=== PATIENT | female | born 1945 | race Asian ===

== ENCOUNTER 2017-02-28 07:43 | Day surgery (SDC) | payer OTHER ==
[2017-01-20 08:37] VITALS: BMI 21.0
[2017-02-15 13:36] VITALS: BMI 21.0
[~2017-02-28] VITALS: Ht 162.6 cm; Wt 56.4 kg
[~2017-02-28 07:43] MED LIST: ATROPINE SULFATE 0.1 MG/ML 5ML SYR IV PRN; CLINDAMYCIN 600 MG/54 ML D5W IV SCH; CLR10 PO; EpHEDrine SULFATE INJ 50 MG/ML AMP IV PRN; FENTANYL CITRATE INJ 50 MCG/1 ML 2 ML VIAL IV PRN; HYDROmorphone INJ 1 MG/ML SYR IV PRN; LABETALOL HCL IV 5 MG/ML 20ML IV PRN; LACTATED RINGER'S 1000ML 1,000 ML IV SCH; MULT-506 PO; ONDANSETRON INJ 2 MG/ML 2 ML VIAL IV PRN; PHENYLEPHRINE 100MCG/ML 5ML SYR IV PRN
[2017-02-28 08:32] VITALS: BP 144/83; PULSE 80; TEMP 36.8; O2SAT 98; Ht 162.6 cm; Wt 56.4 kg
[2017-02-28] MEDS ORDERED: FENTANYL CITRATE INJ 50 MCG/1 ML 2 ML VIAL ONE (08:47)
--- NOTE | 2017-02-28 09:32 | History & Physical Bridge Note ---
H&P Re-Evaluation Bridge Note: I have examined the patient, reviewed the History & Physical and in the interval since the performance of the History & Physical I have noted the following changes of clinical significance: No changes noted
[2017-02-28] MEDS ORDERED: BACITRACIN OINT 15 GM TUBE ONE (09:46)
[2017-02-28] MEDS ORDERED: BUPIVACAINE 0.5 % 5 MG/1 ML MPF 30ML VIAL ONE (09:46)
[2017-02-28] MEDS ORDERED: LIDOCAINE HCL 1% 20 ML VIAL ONE (09:46)
[2017-02-28] MEDS ORDERED: LABETALOL HCL IV 5 MG/ML 20ML IV ONE (10:36)
[2017-02-28] MEDS ORDERED: GLYCOPYRROLATE INJ 0.2 MG/ML VIAL ONE (10:36)
[2017-02-28] MEDS ORDERED: DEXAMETHASONE SOD INJ 4 MG/ML VIAL ONE (10:36)
[2017-02-28] MEDS ORDERED: PROPOFOL IV EMULSION 10 MG/ML 20 ML VIAL IV ONE (10:36)
[2017-02-28] MEDS ORDERED: ROCURONIUM BROMIDE 10 MG/ML 5 ML VIAL IV ONE (10:36)
[2017-02-28] MEDS ORDERED: ONDANSETRON INJ 2 MG/ML 2 ML VIAL ONE (10:36)
[2017-02-28] MEDS ORDERED: LIDOCAINE HCL 2% 2 ML VIAL (20MG/ML) ONE (10:36)
[2017-02-28] MEDS ORDERED: NEOSTIGMINE METHYLSULFATE 5 MG/5 ML SYR ONE (10:36)
--- NOTE | 2017-02-28 11:57 | [facility] Post Operative Brief Note ---
Immediate Operative Summary Operative Date Feb 28, 2017. Pre-Operative Diagnosis Chronic Cholecystitis and Cholelithiasis Post-Operative Diagnosis same Procedure(s) Performed Laparoscopic Cholecystectomy Surgeon Dr. Emiliano Fink Vault Mechanic Surgeon(s) CAITLIN Mclaughlin Estimated Blood Loss 30 ml Findings chronic cholecystitis, significant gallbladder wall thickening, edema, inflammation, Fluids (cc crystalloids) 1000ml Specimens Permanent Specimen A: Gallbladder and Contents Drains none Anesthesia general Complication(s) None Disposition Recovery Room / PACU
[2017-02-28] MEDS ORDERED: OXYC-57 PO (12:04)
--- NOTE | 2017-02-28 12:08 | Discharge Instructions ---
Discharge Instructions Date of Service Feb 28, 2017. Admission Reason for Admission: Chronic Calculous Cholecystitis Discharge Discharge Diagnosis / Problem: same Discharge Goals Goal(s): Decrease discomfort, Improve function Activity Recommendations Activity Limitations: as noted below No heavy lifting over 20 pounds for 2 weeks No strenuous activity until cleared by surgeon No submerging incisions underwater for 2 weeks (no bathing, swimming, or hot tubs) No driving while taking narcotic pain medication or until you are pain free . Instructions / Follow-Up Instructions / Follow-Up You may shower in 3 days, sponge bath and wash hair in meantime Try to keep dressings clean and dry and then remove after 3 days. Leave steri strips on incisions for 7 days and then remove, they may fall off on their own that is okay walking and light activity is encouraged You may take extra strength Ibuprofen in between Percocet as needed for pain however do not take Tylenol in between Percocet as it already has Tylenol in it Follow-up with Dr. Fink in 1-2 weeks as scheduled, please call office at if you do not already have an appointment Current Hospital Diet Patient's current hospital diet: Discharge Diet Recommended Diet: Regular Diet, Low Fat Diet Procedures Procedures Performed: Laparoscopic Cholecystectomy Pending Studies Studies pending at discharge: yes List of pending studies: Pathology of gallbladder- will be reviewed at follow-up visit Medical Emergencies . Who to Call and When: Medical Emergencies: If at any time you feel your situation is an emergency, please call 911 immediately. . Non-Emergent Contact Non-Emergency issues call your: Primary Care Provider, Surgeon Call Non-Emergent contact if: you have a fever, temperature is above 101, your pain is not controlled, your pain is worsening, your pain is unusual for you, wound has increased drainage, wound has increased redness, wound has increased pain . "Provider Documentation" section prepared by Garima Timmons. . VTE Core Measure Inpt VTE Proph given/why not?: SCD's [place] Drug Monitoring Program Search Results: patient reviewed within database, no issues identified
[2017-02-28] MEDS ORDERED: MoRPHine SULFATE 4 MG/ML 1 ML CARP\\VIAL IV PRN (12:15)
[2017-02-28] MEDS ORDERED: ACETAMINOPHEN 325 MG TAB PO PRN (12:15)
[2017-02-28] MEDS ORDERED: OXYCODONE/ACETAMINOPHEN 5-325 TAB PO PRN ×2 (12:15)
[2017-02-28] MEDS ORDERED: MoRPHine SULFATE 2 MG/ML CARP IV PRN ×2 (12:15)
[2017-02-28] MEDS ORDERED: ONDANSETRON INJ 2 MG/ML 2 ML VIAL IV PRN (12:15)
--- NOTE | 2017-02-28 12:41 | Anesthesiology Progress Note ---
Anesthesia Post Op Note Date & Time Feb 28, 2017 at 12:41 Vital Signs Pain Intensity: 0 Vital Signs Past 12 Hours Date Time Temp Pulse Resp B/P (MAP) Pulse Ox O2 Delivery O2 Flow Rate FiO2 02/28/17 12:35 74 17 157/87 97 Room Air 02/28/17 12:25 68 16 164/91 100 Oxymask 10 02/28/17 12:15 66 15 162/88 100 Oxymask 02/28/17 12:07 37.2 69 18 164/85 100 Oxymask 02/28/17 08:32 36.8 80 16 144/83 (103) 98 Room Air Notes Mental Status: alert / awake / arousable, participated in evaluation Pt Amnestic to Procedure: Yes Nausea / Vomiting: adequately controlled Pain: adequately controlled Airway Patency, RR, SpO2: stable & adequate BP & HR: stable & adequate Hydration State: stable & adequate Anesthetic Complications: no major complications apparent Doing well, no complaints. Daughter at bedside. VSS
[2017-02-28 12:52] VITALS: BP 159/85; PULSE 80; TEMP 36.4; O2SAT 97
--- NOTE | 2017-02-28 13:24 | OPERATIVE REPORT ---
DATE OF OPERATION: 02/28/2017 PREOPERATIVE DIAGNOSES: Chronic cholecystitis and cholelithiasis. POSTOPERATIVE DIAGNOSES: Same. OPERATION: Laparoscopic cholecystectomy. SURGEON: Emiliano Fink MD [employer]ENIOR [employer] MARKET COORDINATOR: Garima Timmons PA-C ANESTHESIA: General. ESTIMATED BLOOD LOSS: About 30 mL. FINDINGS: Chronic cholecystitis and cholelithiasis. COMPLICATIONS: None. INDICATIONS FOR THE PROCEDURE: This is a 71-year-old female who presented with symptomatic cholelithiasis and patient will be required to do laparoscopic cholecystectomy, possible open, possible cholangiogram. 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 I indicated the risks may include but not limited such as bleeding, infection, injury to common bile duct, injury to bowel, may need ERCP, myocardial infarction, stroke, DVT, even . They understand and they signed informed consent and I answered all questions. DETAILS OF PROCEDURE: We brought the patient to the OR and put the patient in the supine position. The patient received SCD on bilateral legs to prevent DVT. Also, the patient received 2 grams Ancef IV for prophylactic antibiotic. The patient received general anesthesia without difficulty. The abdomen was prepped and draped in routine sterile fashion. After time out, I injected the local anesthesia by using 1% lidocaine mixed with 0.5% Marcaine making a small incision just above umbilical, opened fascia and opened peritoneum under direct vision. I put a Puneet trocar in, connected to CO2 to create pneumoperitoneum. Flow rate is 6 liters per minute, pressure not more than 14 mmHg. Once we got a nice pneumoperitoneum, we put a camera in to look around the abdomen showing no more findings on the stomach, small bowel, large bowel, liver; however, the gallbladder showed significant inflammation, gallbladder wall thickening, edema, showing chronic cholecystitis and then we put another 3 trocar 5 mm in the right upper quadrant. Once all trocars in, we put grasper in to hold the base of the gallbladder, put direction to the diaphragm and put another grasper in to hold the pouch of the gallbladder, put gallbladder to lateral to expose the triangle of Calot. The cystic duct was identified and mobilized. Then I put two 5 mm metal clips on the proximal cystic duct, one on the distal cystic duct. I then used scissor transection the cystic duct. Then the cystic artery was identified and mobilized. I put two 5 mm metal clips on the proximal cystic artery around the distal cystic duct. I used scissor transecting cystic artery and then we checked, no active bleeding, no bile leak. Then I used Bovie to take down the gallbladder from the liver bed. Rechecked no active bleeding. Then we removed the gallbladder through the catch bag. Then we reinserted Puneet trocar in and connected to CO2 to create pneumoperitoneum again, looked around the abdomen also showing no active bleeding, no bile leak from the liver bed and then we removed all trocars under direct vision. No active bleeding from trocar site. The pneumoperitoneum was released and we closed the umbilical incision, fascial layer by using #1 Vicryl [id number] x2, closed subcutaneous layer by using 2-0 Vicryl interrupted and closed skin by using 4-0 Vicryl continuous running, another 3.5 mm trocar site closed skin only by using 4-0 Vicryl. Then we put the dressing on. The patient tolerated the procedure well. All the instrument, needle and sponge count correct x2 at the end of case. The specimen was sent to pathology. The patient transferred to recovery room in stable condition. After the procedure, I did talk to the patient's daughter about the OR finding and procedure we did and she understands. Also, I gave her all the postop care instruction, she understands. I attest to the content of the Intraoperative Record and any orders documented therein. Any exceptions are noted below. ANTHONY
[2017-02-28 13:25] VITALS: BP 156/77; PULSE 90; TEMP 37; O2SAT 98
[2017-02-28] MEDS ORDERED: CHLORASEPTIC 1.4% SOLN 180 ML BTL MT PRN (13:30)
[2017-02-28] MEDS ORDERED: NURSING VERBAL MED ORDER ONE (13:30)
[2017-02-28 13:50] VITALS: BP 154/82; PULSE 88; TEMP 37; O2SAT 99
[2017-03-01] MEDS ORDERED: CLINDAMYCIN 600 MG/54 ML D5W IV ONE (06:00)
== END 2017-02-28 14:22 | disposition home or self-care (01) ==
LOC: C.ACU 07:43
PROVIDERS: ATTEND Surgery
DX: K80.10 Calculus of gallbladder with chronic cholecystitis without obstruction (principal); Z82.49 Family history of ischemic heart disease and other diseases of the circulatory system; Z88.0 Allergy status to penicillin

== ENCOUNTER 2019-10-25 13:02 | Observation (INO) ==
--- NOTE | 2019-10-25 13:26 | Emergency Department Note ---
History of Present Illness General Chief complaint: Stroke/CVA Symptoms Stated complaint: REFERRED BY DR CHURCH STROKE Time Seen by Provider: 10/25/19 13:13 History of Present Illness Maximum Pain Intensity: 4 This is a 73-year-old female that presents to the emergency department via pr ivate vehicle accompanied by daughter with complaints of "referred by for possible stroke". The patient does not speak German but the daughter is at bedside who interprets for her. They were offered an official japanese interpreter service but respectfully declined, and rather prefer that the daughter interprets. The daughter states that the patient awoke today around 6 AM and noted right arm and right leg weakness, numbness and pain. Pain lasted for a period of time but since its onset the weakness has significantly improved. No history of CVA/TIA. Her only past medical history is significant for that of cholecystectomy. No other known pertinent past medical history and she only takes multivitamins. Patient denies any recent fevers, chills, chest pain or shortness of breath. No headache. She did undergo COVID testing 3 weeks ago which was negative. This has never happened before. No reported trauma or injury. Overall discomfort earlier today was a 2-3/10 in the right arm and right leg which has improved. No reported anticoagulant use. Home Medications Home Medications Medication Instructions Recorded Confirmed Type loratadine [Claritin] 10 mg PO DAILY PRN 01/21/19 10/25/19 History multivitamin 1 tab PO QAM 01/21/19 10/25/19 History acetaminophen [Tylenol] 325 mg PO QID PRN 10/25/19 10/25/19 History Allergies Allergy/AdvReac Type Severity Reaction Status Date / Time alendronate sodium Allergy Unknown PER PT Verified 10/25/19 14:58 RECORD amoxicillin Allergy Unknown PER PT Verified 10/25/19 14:58 RECORD clarithromycin Allergy Unknown PER PT Verified 10/25/19 14:58 RECORD nabumetone Allergy Unknown PER PT Verified 10/25/19 14:58 RECORD Past Med/Surg History Medical History History of appendicitis Surgical History History of appendectomy Hx of cholecystectomy Social History (Reviewed 10/25/19 @ 13:24 by INGRID Ac Smoking Status: Never smoker Hx Alcohol Use: No Hx Substance Use: No Preferred Language: Cantonese Occitan Communication Ability: Effective Industrial Accountant Required: Yes Current Living Situation: Alone Feels Safe at Home: Yes Safety Concerns: Feels Safe At This Time Review of Systems A total of 10 systems reviewed and were otherwise negative Physical Exam Vital Signs Vital Signs - 24 hr 10/25/19 13:03 10/25/19 13:35 10/25/19 13:37 Temperature 37.1 C Temperature Source Oral Pulse Rate 91 H 91 H 89 Pulse Rate from SpO2 Sensor 88 87 Pulse Rhythm Regular Pulse Strength Normal Respiratory Rate 17 24 15 Respiratory Effort / Characteristics Non-Labored Spontaneous Respiratory Depth Normal Respiratory Pattern Regular Blood Pressure 130/74 117/66 Blood Pressure Mean 92 74 Pulse Oximetry 98 98 98 Oxygen Delivery Method Room Air Room Air Room Air Sepsis Recent Fever Within 48 Hours No Sepsis New/Unexplained Change in Mental Status No Sepsis Action Taken by Nursing No Action Required 10/25/19 13:45 10/25/19 13:58 10/25/19 14:00 Temperature Temperature Source Pulse Rate 92 H 89 Pulse Rate from SpO2 Sensor 90 Pulse Rhythm Pulse Strength Respiratory Rate 11 L 20 Respiratory Effort / Characteristics Respiratory Depth Respiratory Pattern Blood Pressure 119/58 L 140/70 Blood Pressure Mean 74 88 Pulse Oximetry 99 Oxygen Delivery Method Room Air Sepsis Recent Fever Within 48 Hours Sepsis New/Unexplained Change in Mental Status Sepsis Action Taken by Nursing 10/25/19 14:01 10/25/19 14:15 10/25/19 14:16 Temperature Temperature Source Pulse Rate 90 80 86 Pulse Rate from SpO2 Sensor 90 81 82 Pulse Rhythm Pulse Strength Respiratory Rate 16 17 15 Respiratory Effort / Characteristics Respiratory Depth Respiratory Pattern Blood Pressure 128/65 Blood Pressure Mean 81 Pulse Oximetry 99 100 99 Oxygen Delivery Method Room Air Room Air Room Air Sepsis Recent Fever Within 48 Hours Sepsis New/Unexplained Change in Mental Status Sepsis Action Taken by Nursing 10/25/19 14:30 10/25/19 14:31 10/25/19 14:45 Temperature Temperature Source Pulse Rate 82 84 79 Pulse Rate from SpO2 Sensor 84 85 Pulse Rhythm Pulse Strength Respiratory Rate 20 17 20 Respiratory Effort / Characteristics Respiratory Depth Respiratory Pattern Blood Pressure 127/69 140/75 Blood Pressure Mean 80 114 Pulse Oximetry 99 99 98 Oxygen Delivery Method Room Air Room Air Room Air Sepsis Recent Fever Within 48 Hours Sepsis New/Unexplained Change in Mental Status Sepsis Action Taken by Nursing 10/25/19 14:46 10/25/19 15:00 10/25/19 15:01 Temperature Temperature Source Pulse Rate 79 79 81 Pulse Rate from SpO2 Sensor Pulse Rhythm Pulse Strength Respiratory Rate 18 16 28 H Respiratory Effort / Characteristics Respiratory Depth Respiratory Pattern Blood Pressure 132/61 Blood Pressure Mean 83 Pulse Oximetry 96 Oxygen Delivery Method Room Air Sepsis Recent Fever Within 48 Hours Sepsis New/Unexplained Change in Mental Status Sepsis Action Taken by Nursing 10/25/19 15:15 10/25/19 15:16 10/25/19 15:30 Temperature Temperature Source Pulse Rate 83 85 77 Pulse Rate from SpO2 Sensor Pulse Rhythm Pulse Strength Respiratory Rate 18 23 15 Respiratory Effort / Characteristics Respiratory Depth Respiratory Pattern Blood Pressure 133/77 133/70 Blood Pressure Mean 93 86 Pulse Oximetry 97 96 Oxygen Delivery Method Room Air Room Air Sepsis Recent Fever Within 48 Hours Sepsis New/Unexplained Change in Mental Status Sepsis Action Taken by Nursing 10/25/19 15:31 Temperature Temperature Source Pulse Rate 76 Pulse Rate from SpO2 Sensor Pulse Rhythm Pulse Strength Respiratory Rate 20 Respiratory Effort / Characteristics Respiratory Depth Respiratory Pattern Blood Pressure Blood Pressure Mean Pulse Oximetry Oxygen Delivery Method Sepsis Recent Fever Within 48 Hours Sepsis New/Unexplained Change in Mental Status Sepsis Action Taken by Nursing VITAL SIGNS - Vital signs and nursing notes were reviewed. Stable and afebrile. GENERAL -73-year-old female appearing her stated age who is in no acute distress. Communicates well with daughter who interprets to provider and answers questions appropriately. SKIN - Without rashes. No meningeal or petechial rash. No evidence of trauma or injury to the right arm or right leg. HEAD - NC/AT. EYES - PERRL with EOMI bilaterally. Sclera anicteric. EARS - No deformities of external structures noted on gross examination bilaterally. No pain elicited with palpation of the tragus bilaterally. External auditory canals without discharge or otorrhea. Tympanic membranes pearly hsieh without retraction or bulging. No fluid or purulent material visualized behind the TM. Handle of malleus, umbo, cone of light, pars tensa/flaccid all easily visualized. NOSE - Midline and without cyanosis. No epistaxis or purulent drainage noted. Septum midline without deviation or septal hematoma noted. MOUTH/OROPHARYNX - Without perioral cyanosis. Buccal mucosa pink and moist and without leukoplakia. Tongue midline with equal elevation of palate bilaterally. No tonsillar hypertrophy, erythema, or exudates noted. Fair dentition noted. NECK - Neck with FROM. Supple to palpation. No lymphadenopathy noted. No nuchal rigidity. LUNGS - Chest wall symmetric without accessory muscle use, intercostals retractions, or central cyanosis. Normal vesicular breath sounds CTA B/L. No wheezes, rales, or rhonchi appreciated. CARDIAC - RRR with S1/S2. No murmur, rubs, or gallops appreciated. EXTREMITIES - No clubbing or peripheral cyanosis. No pretibial edema present. Full active range of motion of the right arm and right leg. No deficit or weakness when compared to the left side. 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 Patient is able to actively extend at the hip raising the legs into the air bilaterally. +5/5 strength noted in UE/LE bilaterally. NEUROLOGIC - Cranial nerves II through XII grossly intact. Sensory intact to light touch throughout. PSYCH - A&Ox3 and cooperates fully with examiner. Pt is very pleasant and interacts well with examiner. Course Administered Medications Aspirin (Ecotrin Ectab) 81 mg PO DAILY RENATA Stop: 11/25/19 08:59 Last Admin: 10/26/19 07:51 Dose: 81 mg Documented by: [id number] Atorvastatin Calcium (Lipitor) 40 mg PO QAM RENATA Stop: 11/24/19 17:29 Last Admin: 10/26/19 07:51 Dose: 40 mg Documented by: [id number] Admin: 10/25/19 18:15 Dose: 40 mg Documented by: [id number] Gadobutrol (Gadavist 65ml) 5.7 ml IV ONCE PRN PRN Reason: Interaction Checking Stop: 10/29/19 16:26 Last Admin: 10/25/19 16:27 Dose: 5.7 ml Documented by: [id number] Ioversol (Optiray 320 125ml) 119 ml IV ONCE PRN PRN Reason: Interaction Checking Stop: 10/29/19 13:49 Last Admin: 10/25/19 13:51 Dose: 119 ml Documented by: [id number] Discontinued Medications Aspirin (Ecotrin Ectab) 81 mg PO NOW STA Stop: 10/25/19 15:38 Last Admin: 10/25/19 18:15 Dose: 81 mg Documented by: [id number] Sodium Chloride (Nss 1000ml) 1,000 mls @ 80 mls/hr IV .[id number] Stop: 10/26/19 05:24 Last Infusion: 10/26/19 06:29 Dose: 0 mls/hr Documented by: [id number] Admin: 10/25/19 18:03 Dose: 80 mls/hr Documented by: [id number] Medical Decision Making Laboratory Data Result diagrams: 10/26/19 07:09 10/26/19 07:09 Lab Results 10/25/19 10/25/19 10/25/19 Range/Units 13:30 13:30 13:30 WBC 15.76 H (4.8-10.8) K/uL RBC 5.57 H (4.2-5.4) M/uL Hgb 11.2 L (12.0-16.0) g/dL POC Hgb (12.0-16.0) g/dl Hct 35.6 L (37-47) % POC Hct (37-47) % MCV 63.9 L (80-100) fL MCH 20.1 L (25-34) pg MCHC 31.5 L (32-36) g/dL RDW Std Deviation 35.4 L (36.4-46.3) fL RDW Coeff of Chioma 15.9 H (11.5-14.5) % Plt Count 329 (130-400) K/uL MPV 9.0 (7.4-10.4) fL Immature Gran % (Auto) 1.3 % Neut % (Auto) 76.0 % Lymph % (Auto) 17.2 % [place] % (Auto) 4.2 % Eos % (Auto) 1.2 % Baso % (Auto) 0.1 % Neut # (Auto) 11.98 H (1.4-6.5) K/uL Lymph # (Auto) 2.71 (1.2-3.4) K/uL [place] # (Auto) 0.66 H (0.11-0.59) K/uL Eos # (Auto) 0.19 (0-0.5) K/uL Baso # (Auto) 0.02 (0-0.2) K/uL Immature Gran # (Auto) 0.20 H (0.00-0.02) K/uL Absolute Nucleated RBC 0.04 H (0-0) K/uL Nucleated RBC % (auto) 0.3 % Polychromasia 1+ Hypochromasia Present Microcytosis Present ESR (0-21) mm/hr PT 10.4 (9.0-12.0) Seconds INR 1.0 (0.9-1.1) APTT 25.7 (21.0-31.0) Seconds PTT Ratio 0.9 POC Sodium (135-144) mmol/L Sodium 137 (136-145) mmol/L POC Potassium (3.3-5.0) mmol/L Potassium 3.9 (3.5-5.1) mmol/L POC Chloride (101-112) mmol/L Chloride 102 (98-107) mmol/L Carbon Dioxide 29 (21-32) mmol/L POC Total CO2 (24-31) mmol/L Anion Gap 6.0 (3-11) POC Anion Gap (16-25) mmol/L POC BUN (7-18) mg/dl BUN 28 H (7-18) mg/dl Creatinine 0.86 (0.6-1.2) mg/dl POC Creatinine (0.6-1.3) mg/dl Est Cr Clr Drug Dosing 51.1 ml/min Est GFR ( Amer) 78.2 Est GFR (Non-Af Amer) 67.5 BUN/Creatinine Ratio 32.8 H (10-20) Glucose 133 H (70-99) mg/dl POC Glucose (70-99) mg/dl POC Glucose (other) (70-99) mg/dl Estimat Average Glucose mg/dl Hemoglobin A1c (4.5-5.6) % Calcium 8.8 (8.5-10.1) mg/dl POC Ioniz Calcium Gwen (1.12-1.32) mmol/l Magnesium 2.9 H (1.8-2.4) mg/dl Total Bilirubin 0.4 (0.2-1) mg/dl AST 13 L (15-37) U/L ALT 25 (12-78) U/L Alkaline Phosphatase 93 (45-117) U/L Troponin I < 0.015 (0-0.045) ng/ml C-Reactive Protein (0-0.29) mg/dl Total Protein 7.6 (6.4-8.2) gm/dl Albumin 2.8 L (3.4-5.0) gm/dl Globulin 4.8 H (2.5-4.0) gm/dl Albumin/Globulin Ratio 0.6 L (0.9-2) Triglycerides (0-150) mg/dl Cholesterol (0-200) mg/dl LDL Cholesterol, Calc mg/dl VLDL Cholesterol, Calc mg/dl HDL Cholesterol mg/dl Cholesterol/HDL Ratio Procalcitonin (0-0.5) ng/ml 10/25/19 10/25/19 10/25/19 Range/Units 13:30 13:30 13:30 WBC (4.8-10.8) K/uL RBC (4.2-5.4) M/uL Hgb (12.0-16.0) g/dL POC Hgb (12.0-16.0) g/dl Hct (37-47) % POC Hct (37-47) % MCV (80-100) fL MCH (25-34) pg MCHC (32-36) g/dL RDW Std Deviation (36.4-46.3) fL RDW Coeff of Chioma (11.5-14.5) % Plt Count (130-400) K/uL MPV (7.4-10.4) fL Immature Gran % (Auto) % Neut % (Auto) % Lymph % (Auto) % [place] % (Auto) % Eos % (Auto) % Baso % (Auto) % Neut # (Auto) (1.4-6.5) K/uL Lymph # (Auto) (1.2-3.4) K/uL [place] # (Auto) (0.11-0.59) K/uL Eos # (Auto) (0-0.5) K/uL Baso # (Auto) (0-0.2) K/uL Immature Gran # (Auto) (0.00-0.02) K/uL Absolute Nucleated RBC (0-0) K/uL Nucleated RBC % (auto) % Polychromasia Hypochromasia Microcytosis ESR > 90 H (0-21) mm/hr PT (9.0-12.0) Seconds INR (0.9-1.1) APTT (21.0-31.0) Seconds PTT Ratio POC Sodium (135-144) mmol/L Sodium (136-145) mmol/L POC Potassium (3.3-5.0) mmol/L Potassium (3.5-5.1) mmol/L POC Chloride (101-112) mmol/L Chloride (98-107) mmol/L Carbon Dioxide (21-32) mmol/L POC Total CO2 (24-31) mmol/L Anion Gap (3-11) POC Anion Gap (16-25) mmol/L POC BUN (7-18) mg/dl BUN (7-18) mg/dl Creatinine (0.6-1.2) mg/dl POC Creatinine (0.6-1.3) mg/dl Est Cr Clr Drug Dosing ml/min Est GFR ( Amer) Est GFR (Non-Af Amer) BUN/Creatinine Ratio (10-20) Glucose (70-99) mg/dl POC Glucose (70-99) mg/dl POC Glucose (other) (70-99) mg/dl Estimat Average Glucose mg/dl Hemoglobin A1c (4.5-5.6) % Calcium (8.5-10.1) mg/dl POC Ioniz Calcium Gwen (1.12-1.32) mmol/l Magnesium (1.8-2.4) mg/dl Total Bilirubin (0.2-1) mg/dl AST (15-37) U/L ALT (12-78) U/L Alkaline Phosphatase (45-117) U/L Troponin I (0-0.045) ng/ml C-Reactive Protein 5.74 H (0-0.29) mg/dl Total Protein (6.4-8.2) gm/dl Albumin (3.4-5.0) gm/dl Globulin (2.5-4.0) gm/dl Albumin/Globulin Ratio (0.9-2) Triglycerides 647 H (0-150) mg/dl Cholesterol 135 (0-200) mg/dl LDL Cholesterol, Calc mg/dl VLDL Cholesterol, Calc mg/dl HDL Cholesterol 14 mg/dl Cholesterol/HDL Ratio 10 Procalcitonin 0.25 (0-0.5) ng/ml 10/25/19 10/25/19 10/25/19 Range/Units 13:30 13:34 13:39 WBC (4.8-10.8) K/uL RBC (4.2-5.4) M/uL Hgb (12.0-16.0) g/dL POC Hgb 12.6 (12.0-16.0) g/dl Hct (37-47) % POC Hct 37 (37-47) % MCV (80-100) fL MCH (25-34) pg MCHC (32-36) g/dL RDW Std Deviation (36.4-46.3) fL RDW Coeff of Chioma (11.5-14.5) % Plt Count (130-400) K/uL MPV (7.4-10.4) fL Immature Gran % (Auto) % Neut % (Auto) % Lymph % (Auto) % [place] % (Auto) % Eos % (Auto) % Baso % (Auto) % Neut # (Auto) (1.4-6.5) K/uL Lymph # (Auto) (1.2-3.4) K/uL [place] # (Auto) (0.11-0.59) K/uL Eos # (Auto) (0-0.5) K/uL Baso # (Auto) (0-0.2) K/uL Immature Gran # (Auto) (0.00-0.02) K/uL Absolute Nucleated RBC (0-0) K/uL Nucleated RBC % (auto) % Polychromasia Hypochromasia Microcytosis ESR (0-21) mm/hr PT (9.0-12.0) Seconds INR (0.9-1.1) APTT (21.0-31.0) Seconds PTT Ratio POC Sodium 138 (135-144) mmol/L Sodium (136-145) mmol/L POC Potassium 4.0 (3.3-5.0) mmol/L Potassium (3.5-5.1) mmol/L POC Chloride 98 L (101-112) mmol/L Chloride (98-107) mmol/L Carbon Dioxide (21-32) mmol/L POC Total CO2 29 (24-31) mmol/L Anion Gap (3-11) POC Anion Gap 16.0 (16-25) mmol/L POC BUN 28 H (7-18) mg/dl BUN (7-18) mg/dl Creatinine (0.6-1.2) mg/dl POC Creatinine 0.8 (0.6-1.3) mg/dl Est Cr Clr Drug Dosing ml/min Est GFR ( Amer) Est GFR (Non-Af Amer) BUN/Creatinine Ratio (10-20) Glucose (70-99) mg/dl POC Glucose 148 H (70-99) mg/dl POC Glucose (other) 139 H (70-99) mg/dl Estimat Average Glucose 126 mg/dl Hemoglobin A1c 6.0 H (4.5-5.6) % Calcium (8.5-10.1) mg/dl POC Ioniz Calcium Gwen 1.15 (1.12-1.32) mmol/l Magnesium (1.8-2.4) mg/dl Total Bilirubin (0.2-1) mg/dl AST (15-37) U/L ALT (12-78) U/L Alkaline Phosphatase (45-117) U/L Troponin I (0-0.045) ng/ml C-Reactive Protein (0-0.29) mg/dl Total Protein (6.4-8.2) gm/dl Albumin (3.4-5.0) gm/dl Globulin (2.5-4.0) gm/dl Albumin/Globulin Ratio (0.9-2) Triglycerides (0-150) mg/dl Cholesterol (0-200) mg/dl LDL Cholesterol, Calc mg/dl VLDL Cholesterol, Calc mg/dl HDL Cholesterol mg/dl Cholesterol/HDL Ratio Procalcitonin (0-0.5) ng/ml Imaging Data Radiologist's Impression: CT OF THE HEAD WITHOUT CONTRAST CLINICAL HISTORY: Stroke evaluation COMPARISON STUDY: No previous studies for comparison. TECHNIQUE: Helical axial images of the head were obtained without IV contrast. Automated exposure control was utilized for the study. A dose lowering technique was utilized adhering to the principles of ALARA. FINDINGS: No acute intracranial hemorrhage, midline shift or mass effect is present. The ventricular system is unremarkable. The basilar cisterns are patent. No extra-axial collections are present. There are no findings to suggest acute dural sinus thrombosis or acute territorial infarct. No significant calvarial abnormalities are present. Visualized portions of the sinuses and mastoid air cells are clear. IMPRESSION: No acute intracranial findings. ACT 112: Negative or not required by law. Electronically signed by: Guzman Gonzalez M.D. 10/25/2019 2:02 PM NECK CTA HISTORY: Stroke evaluation TECHNIQUE: Multiaxial CT images of the neck were performed following the intravenous administration of contrast to evaluate the major cervical vessels. Maximum intensity projection images were also obtained. All measurements were calculated based on NASCET criteria. A dose lowering technique was utilized adhering to the principles of ALARA. COMPARISON STUDY: None. FINDINGS: The aortic arch and proximal great vessels are widely patent. There is no significant stenosis, occlusion, or dissection identified within the bilateral common carotid, internal carotid, or vertebral arteries. Subcentimeter thyroid nodules with the largest on the right measuring 9 mm. IMPRESSION: No significant stenosis, occlusion, or dissection identified within the carotid or vertebral arteries. ACT 112: Negative or not required by law. Electronically signed by: Rajat Batsita M.D. 10/25/2019 2:14 PM CTA ANGIOGRAPHY OF THE HEAD CLINICAL HISTORY: Stroke evaluation COMPARISON STUDY: No previous studies for comparison. TECHNIQUE: Helical axial images of the head were obtained following uneventful intravenous administration of 120 cc of Optiray 320. Sagittal and coronal reconstructions were viewed as well as maximal intensity projections on an independent 3-D workstation. Automated exposure control was utilized for the study. A dose lowering technique was utilized adhering to the principles of ALARA. FINDINGS: No acute intracranial hemorrhage, midline shift or mass effect is present. Ventricular system is normal. The basilar cisterns are patent. There are no extra-axial collections. The bilateral M1, M2, A1 and A2 segments are patent. There is no intracranial aneurysm or intraluminal thrombus. No abrupt vessel cut off is identified. persistence of the right posterior cerebral artery is noted. Right vertebral artery is dominant. Posterior circulation is intact. IMPRESSION: Unremarkable CTA of the head. ACT 112: Negative or not required by law. Electronically signed by: Guzman Gonzalez M.D. 10/25/2019 2:22 PM Blood Pressure Additional Comments: Sinus rhythm at a rate of 86 bpm. QTc 442. QRS 80. No ST elevation. No ischemic change. This was compared to EKG performed January 21, 2019 and no significant change was found. MDM Narrative Patient was seen and evaluated as above in room in room B6. Review was performed of nursing notes and vital signs. I did review pertinent previous visits and patient history. After obtaining a thorough history and physical examination the above work up was performed. She presents to us today with what she describes as onset upon awakening of right arm and right leg weakness/numbness/pain. She awoke around 6 AM. We when she went to bed last night she felt fine. No reported trauma or injury. No fevers or chills. She had a negative COVID-19 test 3 weeks ago. At this time she offers very little complaints noting that most of her symptoms have resolved. There is no neurovascular deficit on my examination. No weakness appreciated on my exam. Stroke work-up was initiated. Upon review of labs there is moderate leukocytosis around 15,000 with mild anemia. The hemoglobin is similar to previous but the white count elevation is new. POC glucose 148. She is not hypoglycemic. No emergent metabolic disturbance. BUN is elevated at 28. Patient's BUN/creatinine ratio 32.8. Magnesium elevated at 2.9. PT/INR and PTT normal. CT head noncontrast negative. CTA neck negative. CTA head negative. Given the patient's presentation it is felt that further evaluation and management in inpatient setting is warranted. Case discussed with the attending physician as well as the hospitalist, Dr. Taylor. Please refer to further documentation regarding her stay. Case was discussed with the attending physician. GCS: 15 In the evaluation and treatment of this patient, the following differential diagnoses were considered: Concussion, Contrecoup Injury, Brain Tumor, Depression, Encephalitis, Hypothyroidism, Meningitis, CVA, TIA, Migraine, Cluster Headache, Intracranial Abnormality, Intracranial Hemorrhage, Subdural H ematoma, Subarachnoid Hemorrhage, Hydrocephalus, among others. Impression & Plan Right arm weakness, Right leg weakness Discharge Plan Visit Data *Final* Discharge Date/Time: 10/25/19 16:11 Chief Complaint: Stroke/CVA Symptoms Stated Complaint: REFERRED BY POSSIBLE STROKE ED Provider: Olivier Srinivasan ED Midlevel Provider: Chema Pierce Discharge Problem: Right arm weakness, Right leg weakness Patient Disposition: Admitted As Inpatient Discharge Instructions Interventions: ED Discharge Assessment Last Done: 10/25/19 16:11
[2019-10-25 13:44] LABS: Basophils # (auto) 0.02 K/uL (0-0.2); Basophils % (auto) 0.1 %; Eosinophils # (auto) 0.19 K/uL (0-0.5); Eosinophils % (auto) 1.2 %; Hematocrit (blood only) 35.6 % (37-47); Hemoglobin 11.2 g/dL (12.0-16.0); Immature Granulocytes % (auto) 1.3 %; Lymphocytes # (auto) 2.71 K/uL (1.2-3.4); Lymphocytes % (auto) 17.2 %; Mean Corpuscular Hemoglobin 20.1 pg (25-34); Mean Corpuscular Hgb Conc 31.5 g/dL (32-36); Mean Corpuscular Volume 63.9 fL (80-100); Monocytes # (auto) 0.66 K/uL (0.11-0.59); Monocytes % (auto) 4.2 %; Neutrophils # (auto) 11.98 K/uL (1.4-6.5); Nucleated RBC # (auto) 0.04 K/uL (0-0); Nucleated RBC % (auto) 0.3 %; Platelet Count 329 K/uL (130-400); RDW Coefficient of Variation 15.9 % (11.5-14.5); RDW Standard Deviation 35.4 fL (36.4-46.3); Red Blood Count 5.57 M/uL (4.2-5.4); White Blood Count 15.76 K/uL (4.8-10.8)
[2019-10-25] MEDS ORDERED: OPTIRAY 320 125ml IV PRN (13:50)
[2019-10-25 13:55] LABS: Partial Thromboplastin Ratio 0.9; Partial Thromboplastin Time 25.7 Seconds (21.0-31.0); Prothrombin Time 10.4 Seconds (9.0-12.0)
[2019-10-25 13:56] LABS: iSTAT Creatinine 0.8 mg/dl (0.6-1.3); iSTAT Hemoglobin 12.6 g/dl (12.0-16.0); iSTAT Ionized Calcium 1.15 mmol/l (1.12-1.32)
[2019-10-25 14:03] LABS: Hypochromasia Present; Microcytosis Present; Polychromasia 1+
--- NOTE | 2019-10-25 14:03 | CT Scan Report ---
CT OF THE HEAD WITHOUT CONTRAST CLINICAL HISTORY: Stroke evaluation COMPARISON STUDY: No previous studies for comparison. TECHNIQUE: Helical axial images of the head were obtained without IV contrast. Automated exposure con trol was utilized for the study. A dose lowering technique was utilized adhering to the principles o f ALARA. FINDINGS: No acute intracranial hemorrhage, midline shift or mass effect is present. The ventricular system is unremarkable. The basilar cisterns are patent. No extra-axial collections are present. Ther e are no findings to suggest acute dural sinus thrombosis or acute territorial infarct. No significan t calvarial abnormalities are present. Visualized portions of the sinuses and mastoid air cells are c lear. IMPRESSION: No acute intracranial findings. ACT 112: Negative or not required by law. Electronically signed by: Guzman Gonzalez M.D. 10/25/2019 2:02 PM
[2019-10-25 14:05] LABS: Alanine Aminotransferase 25 U/L (12-78); Albumin Level 2.8 gm/dl (3.4-5.0); Aspartate Aminotransferase 13 U/L (15-37); BUN Creatinine Ratio 32.8 (10-20); Blood Urea Nitrogen 28 mg/dl (7-18); Calcium 8.8 mg/dl (8.5-10.1); Carbon Dioxide 29 mmol/L (21-32); Chloride 102 mmol/L (98-107); Creatinine Clr Calc Pharmacy 51.1 ml/min; Est GFR (African American) 78.2; Est GFR (Non-African American) 67.5; Glucose 133 mg/dl (70-99); Magnesium 2.9 mg/dl (1.8-2.4); Potassium 3.9 mmol/L (3.5-5.1); Sodium 137 mmol/L (136-145)
[2019-10-25 14:09] LABS: Albumin Globulin Ratio 0.6 (0.9-2); Alkaline Phosphatase 93 U/L (45-117); Bilirubin,Total 0.4 mg/dl (0.2-1); Globulin 4.8 gm/dl (2.5-4.0); Total Protein 7.6 gm/dl (6.4-8.2); Troponin I < 0.015 ng/ml (0-0.045)
--- NOTE | 2019-10-25 14:09 | XRay Report ---
SINGLE VIEW CHEST CLINICAL HISTORY: Right upper and lower extremity weakness. FINDINGS: An AP, portable, upright chest radiograph is compared to study dated 01/21/2019. The examin ation is degraded by portable technique, apical lordotic positioning, and patient rotation. The car diomediastinal silhouette is unremarkable. Chronic interstitial thickening is similar to previous. Th ere is no airspace consolidation or large pleural effusion. No pneumothorax is seen. The skeletal str uctures are osteopenic. The bony thorax is grossly intact. IMPRESSION: No active disease in the chest. ACT 112: Negative or not required by law. Electronically signed by: Olivier Glover M.D. 10/25/2019 2:07 PM
--- NOTE | 2019-10-25 14:16 | CT Scan Report ---
NECK CTA HISTORY: Stroke evaluation TECHNIQUE: Multiaxial CT images of the neck were performed following the intravenous administration o f contrast to evaluate the major cervical vessels. Maximum intensity projection images were also obta ined. All measurements were calculated based on NASCET criteria. A dose lowering technique was utili zed adhering to the principles of ALARA. COMPARISON STUDY: None. FINDINGS: The aortic arch and proximal great vessels are widely patent. There is no significant sten osis, occlusion, or dissection identified within the bilateral common carotid, internal carotid, or v ertebral arteries. Subcentimeter thyroid nodules with the largest on the right measuring 9 mm. IMPRESSION: No significant stenosis, occlusion, or dissection identified within the carotid or vertebral arteries . ACT 112: Negative or not required by law. Electronically signed by: Rajat Batista M.D. 10/25/2019 2:14 PM
--- NOTE | 2019-10-25 14:23 | CT Scan Report ---
CTA ANGIOGRAPHY OF THE HEAD CLINICAL HISTORY: Stroke evaluation COMPARISON STUDY: No previous studies for comparison. TECHNIQUE: Helical axial images of the head were obtained following uneventful intravenous administr ation of 120 cc of Optiray 320. Sagittal and coronal reconstructions were viewed as well as maximal i ntensity projections on an independent 3-D workstation. Automated exposure control was utilized for the study. A dose lowering technique was utilized adhering to the principles of ALARA. FINDINGS: No acute intracranial hemorrhage, midline shift or mass effect is present. Ventricular syst em is normal. The basilar cisterns are patent. There are no extra-axial collections. The bilateral M1 , M2, A1 and A2 segments are patent. There is no intracranial aneurysm or intraluminal thrombus. No a brupt vessel cut off is identified. persistence of the right posterior cerebral artery is noted . Right vertebral artery is dominant. Posterior circulation is intact. IMPRESSION: Unremarkable CTA of the head. ACT 112: Negative or not required by law. Electronically signed by: Guzman Gonzalez M.D. 10/25/2019 2:22 PM
--- NOTE | 2019-10-25 14:55 | Emergency Department Note ---
ED Visit Note Patient was seen by our PA/NEWS CAMERAMAN. I was involved in the patient's care and did evaluate the patient myself. I was involved in the care throughout the ER stay. Patient presents with strokelike symptoms that began around 7 hours prior to arrival. She was out of the window for any TPA. On exam, there were no obvious neurologic deficits. She had markedly improved from when her symptoms began. Patient's stroke work-up has returned unrevealing. She does have a white blood cell count elevation of unknown significance. Given her symptoms, hospi talization is warranted. Further work-up is required. A stroke is still a consideration as the cause for her presentation. .
[2019-10-25] MEDS ORDERED: ASPIRIN 81 MG ECTAB PO STA (15:37)
[2019-10-25] MEDS ORDERED: ACETAMINOPHEN 325 MG TAB PO PRN (15:38)
--- NOTE | 2019-10-25 15:44 | History & Physical Report ---
Date of Service October 25, 2019 Assessment & Plan (1) Right arm weakness: (2) Right leg weakness: possible Transient Ischemic Attack Leukocytosis -This is a 73 year old Danish (Cantonese dialect) speaking female patient who is not on any chronic medications who presents to the Emergency room accompanied by her daughter Keila (phone number [phone]) after patient experienced right sided weakness of upper and lower extremity after waking up in the morning. Patient was first taken to family medical doctor on for assessment and they referred her to the emergency room. As per the daughter, patient's total duration of symptoms was noticed for 3 hours and symptoms were still present at the family medical doctor office. However, these symptoms subsided by the time patient was evaluated in the emergency room. Emergency room provider discussed with hospitalist that patient outside the window for TPA in terms of number of hours from onset of symptoms and also because patient appears back to baseline motor strength/function. -CT head No acute intracranial findings. CTA head unremarkable as per radiology impression. CTA neck: No significant stenosis, occlusion, or dissection identified within the carotid or vertebral arteries. Labs remarkable for white blood cell count of 15,000. Emergency room provider requested that patient to be placed under observation for work up of potential Transient Ischemic Attack -As per hospitalist gather the history, I am fluent in Cantonese and patient insisted that she was feeling fine and attributed her initial motor deficits to old age or joint issues, but her daughter at bedside in the ED told me this does not appeared to be the case. Patient denies other acute symptoms - no chest discomforts, no abdomen discomforts, no fevers, no diarrhea, no problems with urination, no dysuria. Her Daughter Keila corroborated her health history and helped filled out the MRI safety sheet so that brain MRI can be performed -place under observation with telemetry monitoring, neurochecks by nursing -if there are concerns for any unusual brain MRI findings or telemetry findings then can consider echocardiogram -empirically give aspirin 81 mg daily for now -follow Hemoglobin A1c and non-fasting lipid panel -dysphagia screen, if passed then patient can be advanced to regular diet with aspiration precautions -formal speech and swallow evaluations, PT/OT evaluations -neurology consult requested -blood cultures are to be drawn with ESR, CRP, procalcitonin, await urine analysis to be performed, give normal saline 1000 ml as 80 cc/hr for complete of 1 bag, re-assess the WBC -since patient denies fever or dysuria symptoms and is currently afebrile, would hold off antibiotics at this time DVT prophylaxis: Mark Pedraza (phone number [phone]) affirms patient's code status as Full Code History of Present Illness This is a 73 year old Danish (Cantonese dialect) speaking female patient who is not on any chronic medications who presents to the Emergency room accompanied by her daughter Keila (phone number [phone]) after patient experienced right sided weakness of upper and lower extremity after waking up in the morning. Patient was first taken to family medical doctor on for assessment and they referred her to the emergency room. As per the daughter, patient's total duration of symptoms was noticed for 3 hours and symptoms were still present at the family medical doctor office. However, these symptoms subsided by the time patient was evaluated in the emergency room. Emergency room provider discussed with hospitalist that patient outside the window for TPA in terms of number of hours from onset of symptoms and also because patient appears back to baseline motor strength/function. CT head No acute intracranial findings. CTA head unremarkable as per radiology impression. CTA neck: No significant stenosis, occlusion, or dissection identified within the carotid or vertebral arteries. Labs remarkable for white blood cell count of 15,000. Emergency room provider requested that patient to be placed under observation for work up of potential Transient Ischemic Attack As per hospitalist gather the history, I am fluent in Cantonese and patient insisted that she was feeling fine and attributed her initial motor deficits to old age or joint issues, but her daughter at bedside in the ED told me this does not appeared to be the case. Patient denies other acute symptoms - no chest discomforts, no abdomen discomforts, no fevers, no diarrhea, no problems with urination, no dysuria. Her Daughter Keila corroborated her health history and helped filled out the MRI safety sheet so that brain MRI can be performed Family History: father with history of heart arrack and hypertension, mother with history of dementia Primary Care Provider: Abner Simmons MD Allergies Allergy/AdvReac Type Severity Reaction Status Date / Time alendronate sodium Allergy Unknown PER PT Verified 10/25/19 14:58 RECORD amoxicillin Allergy Unknown PER PT Verified 10/25/19 14:58 RECORD clarithromycin Allergy Unknown PER PT Verified 10/25/19 14:58 RECORD nabumetone Allergy Unknown PER PT Verified 10/25/19 14:58 RECORD Home Medications Home Medications Medication Instructions Recorded Confirmed Type loratadine [Claritin] 10 mg PO DAILY PRN 01/21/19 10/25/19 History multivitamin 1 tab PO QAM 01/21/19 10/25/19 History acetaminophen [Tylenol] 325 mg PO QID PRN 10/25/19 10/25/19 History Past Med/Surg History Medical History History of appendicitis Surgical History History of appendectomy Hx of cholecystectomy Social History Smoking Status: Never smoker Preferred Language: Cantonese Danish Feels Safe at Home: Yes Review of Systems Review of Systems: All systems reviewed & are unremarkable except as noted in Subjective Physical Exam Constitutional: comfortable Eyes: PERRL, conjunctivae normal, anicteric sclerae EOM intact bilaterally ENMT: external ear and nose normal, oropharynx normal Neck: trachea midline, no thyromegaly normal visual inspection Respiratory: normal respiratory effort, lungs clear to auscultation Cardiovascular: Rate/Rhythm: regular rate and regular rhythm Gastrointestinal (Abdomen): normal bowel sounds, soft, nontender, no hepatosplenomegaly Musculoskeletal: Head/Neck/Chest: normocephalic and head atraumatic Neurologic: PERRL, EOMI, accommodation nl, no face palsy, no dysarthria moves all extremities Psychiatric: Orientation: alert and cooperative Results & Data Results & Data ([facility]) Vital Signs (Past 12 Hours) Vital Signs Temp Pulse Resp BP Pulse Ox 10/25/19 15:16 85 23 10/25/19 15:15 83 18 133/77 97 10/25/19 15:01 81 28 H 10/25/19 15:00 79 16 132/61 96 10/25/19 14:46 79 18 10/25/19 14:45 79 20 140/75 98 10/25/19 14:31 84 17 99 10/25/19 14:30 82 20 127/69 99 10/25/19 14:16 86 15 99 10/25/19 14:15 80 17 128/65 100 10/25/19 14:01 90 16 99 10/25/19 14:00 89 20 140/70 99 10/25/19 13:58 92 H 11 L 10/25/19 13:45 119/58 L 10/25/19 13:37 89 15 98 10/25/19 13:35 91 H 24 117/66 98 10/25/19 13:03 37.1 C 91 H 17 130/74 98 Code Status & VTE Plan VTE Prophylaxis Plan VTE Prophylaxis will be ordered: Yes
[2019-10-25 16:27] LABS: C Reactive Protein 5.74 mg/dl (0-0.29)
[2019-10-25] MEDS ORDERED: GADOBUTROL 65ML VIAL IV PRN (16:27)
--- NOTE | 2019-10-25 16:42 | Magnetic Resonance Report ---
MRI OF THE BRAIN WITHOUT AND WITH IV CONTRAST CLINICAL HISTORY: Right arm and leg numbness. Evaluate for stroke. COMPARISON STUDY: Head CT and CTA of the head performed earlier today. TECHNIQUE: Utilizing a 1.5 Louann magnet and dedicated coil, multiplanar, multiecho imaging of the br ain was performed pre and postcontrast administration. IV administration of 5.7 mL of Gadavist contr ast was uneventful. FINDINGS: There are no foci of restricted diffusion to suggest acute infarct. No acute intracranial h emorrhage, midline shift or mass effect is present. Ventricular system is unremarkable. Basilar ciste rns are patent. There are no extra-axial collections. Flow-voids for the major intracranial vessels a re present. Scattered white matter T2 hyperintense foci suggest mild small vessel disease. There is n o intracranial mass or pathologic enhancement. Calvarial signal is normal. Orbits and sinuses are unr emarkable. Is no mastoid fluid. IMPRESSION: No acute intracranial findings. ACT 112: Negative or not required by law. Electronically signed by: Guzman Gonzalez M.D. 10/25/2019 4:41 PM
[2019-10-25] MEDS ORDERED: SODIUM CHLORIDE 0.9% 1000ML 1,000 ML IV SCH (16:55)
[2019-10-25] MEDS: ATORVASTATIN 40 MG TAB PO SCH (18:15)
[2019-10-25 18:52] LABS: Appearance Urine Cloudy (Clear); Bacteria Urine Automated Negative (Negative); Bilirubin Urine Negative (Negative); Blood Urine Negative (Negative); Cast Urine Automated 0 /lpf (0-5); Color Urine Yellow; Epithelial Cell Urine Auto 0-5 /lpf (0-5); Glucose Urine UA Negative (Negative); Ketones Urine Negative (Negative); Leukocyte Esterase Urine Negative (Negative); Nitrite Urine Negative (Negative); Protein Urine Negative (Negative); RBC Urine Automated 0-4 /hpf (0-4); Specific Gravity Urine > 1.045 (1.000-1.030); Urobilinogen Urine Negative (Negative); pH Urine 8.5 (4.5-7.5)
--- NOTE | 2019-10-25 23:17 | Electrocardiogram Report ---
Test Reason : Blood Pressure : / mmHG Vent. Rate : 086 BPM Atrial Rate : 086 BPM P-R Int : 128 ms QRS Dur : 088 ms QT Int : 370 ms P-R-T Axes : 039 034 051 degrees QTc Int : 442 ms Sinus rhythm with Premature atrial complexes Nonspecific ST abnormality When compared with ECG of 21-JAN-2019 11:29, Premature atrial complexes are now Present Confirmed by Carlos Rothman ([id number]) on 10/25/2019 11:17:02 PM Referred By: REFERRED SELF Confirmed By:Carlos Rothman
[2019-10-26 07:24] LABS: Basophils # (auto) 0.02 K/uL (0-0.2); Basophils % (auto) 0.1 %; Eosinophils # (auto) 0.29 K/uL (0-0.5); Hematocrit (blood only) 34.6 % (37-47); Hemoglobin 10.9 g/dL (12.0-16.0); Immature Granulocytes # (auto) 0.11 K/uL (0.00-0.02); Immature Granulocytes % (auto) 0.7 %; Lymphocytes # (auto) 2.44 K/uL (1.2-3.4); Lymphocytes % (auto) 16.4 %; Mean Corpuscular Hemoglobin 20.1 pg (25-34); Mean Corpuscular Hgb Conc 31.5 g/dL (32-36); Mean Corpuscular Volume 63.7 fL (80-100); Mean Platelet Volume 8.9 fL (7.4-10.4); Monocytes # (auto) 0.71 K/uL (0.11-0.59); Monocytes % (auto) 4.8 %; Nucleated RBC # (auto) 0.02 K/uL (0-0); Nucleated RBC % (auto) 0.2 %; Platelet Count 287 K/uL (130-400); RDW Coefficient of Variation 15.8 % (11.5-14.5); RDW Standard Deviation 35.5 fL (36.4-46.3); Red Blood Count 5.43 M/uL (4.2-5.4); White Blood Count 14.87 K/uL (4.8-10.8)
[2019-10-26] MEDS: ATORVASTATIN 40 MG TAB PO SCH (07:51)
[2019-10-26 07:54] LABS: Albumin Globulin Ratio 0.6 (0.9-2); Albumin Level 2.6 gm/dl (3.4-5.0); BUN Creatinine Ratio 21.9 (10-20); Bilirubin,Total 0.5 mg/dl (0.2-1); Calcium 8.3 mg/dl (8.5-10.1); Creatinine Clr Calc Pharmacy 59.3 ml/min; Est GFR (African American) 93.8; Est GFR (Non-African American) 80.9; Globulin 4.7 gm/dl (2.5-4.0); Total Protein 7.3 gm/dl (6.4-8.2)
[2019-10-26 08:22] LABS: Hypochromasia Present; Microcytosis Present; Target Cells 1+
[2019-10-26 08:37] LABS: Estimated Average Glucose 126 mg/dl
[2019-10-26] MEDS ORDERED: ASPIRIN 81 MG ECTAB PO SCH (09:00)
[2019-10-26 11:18] VITALS: PULSE 95; TEMP 99.9; O2SAT 97
--- NOTE | 2019-10-26 11:55 | Hospitalist Progress Note ---
Date of Service October 26, 2019 Assessment & Plan (1) Right arm weakness: (2) Right leg weakness: possible Transient Ischemic Attack Leukocytosis Elevated CRP and ESR Elevated Triglycerides -This is a 73 year old Maltese (Cantonese dialect) speaking female patient who is not on any chronic medications who presents to the Emergency room accompanied by her daughter Keila (phone number [phone]) after patient experienced right sided weakness of upper and lower extremity after waking up in the morning. Patient was first taken to family medical doctor on for assessment and they referred her to the emergency room. As per the daughter, patient's total duration of symptoms was noticed for 3 hours and symptoms were still present at the family medical doctor office. However, these symptoms subsided by the time patient was evaluated in the emergency room. Emergency room provider discussed with hospitalist that patient outside the window for TPA in terms of number of hours from onset of symptoms and also because patient appears back to baseline motor strength/function. -CT head No acute intracranial findings. CTA head unremarkable as per radiology impression. CTA neck: No significant stenosis, occlusion, or dissection identified within the carotid or vertebral arteries. Labs remarkable for white blood cell count of 15.76 K/ul. Emergency room provider requested that patient to be placed under observation for work up of potential Transient Ischemic Attack -As per hospitalist gather the history, I am fluent in Cantonese and patient insisted that she was feeling fine and attributed her initial motor deficits to old age or joint issues, but her daughter at bedside in the ED told me this does not appeared to be the case. Patient denies other acute symptoms - no chest discomforts, no abdomen discomforts, no fevers, no diarrhea, no problems with urination, no dysuria. Her Daughter Keila corroborated her health history and helped filled out the MRI safety sheet so that brain MRI can be performed -Brain MRI 10/25/2019 There are no foci of restricted diffusion to suggest acute infarct. No acute intracranial hemorrhage, midline shift or mass effect is present. Ventricular system is unremarkable. Basilar cisterns are patent. There are no extra-axial collections. Flow-voids for the major intracranial vessels are present. Scattered white matter T2 hyperintense foci suggest mild small vessel disease. There is no intracranial mass or pathologic enhancement. Calvarial signal is normal. Orbits and sinuses are unremarkable. Is no mastoid fluid. IMPRESSION: No acute intracranial findings. -patient was started on aspirin 81 mg daily starting on 10/25/2019 and because of elevated non fasting Triglycerides she was started also on atorvastatin 40 mg daily. The repeat lipid panel on 10/26/2019 does show low LDL a30 have prescribed[address] Dr[address] Cordero from neurology advising to discharge with aspirin 81 mg daily in case of Transient Ischemic Attack but he wishes to have patient seen in the outpatient setting given that all motor deficits have resolved on this hospital presentation and outpatient ZIO patch which can be coordinated by outpatient providers -Patient has scheduled appointments to 11/02/2019 11:00 AM Provider Abner Simmons III, MD Department Family Practice [facility] and 11/07/2019 12:00 PM Provider Imelda Barcenas PA-C Department Neurology [facility] -sent prescription of aspirin 81 mg daily for 30 day supply to [facility] [address] [place] [address] and also 10 day trial of atorvastatin 40 mg daily. Patient should have repeat fasting lipid panels repeated by family medical doctor -Patient was monitored on telemetry and remains in sinus rhythm. An echocardiogram was preformed on 10/26/2019 with results pending to rule out any atrial septal defects -the admission WBC was 15.76 K/ul and with normal procalcitonin levels and patient not septic on admission. normal urine analysis. no pneumonia on Chest X ray. The WBC did not trend down significantly after IV fluids on 10/25/2019 as t he WBC 14.87. she remains afebrile but there were elevated inflammatory markers on admission as CRP was elevated as 5.74 and ESR > 90. Daughter wishes to have patient be discharged as no further motor deficits by 10/26/2019 and reported that patient did well with Physical Therapy/Occupational Therapy/and Speech services.. She allows for patient to have blood cultures drawn on 10/26/2019 and be notified if these results are abnormal Keila (phone number [phone]) affirms patient's code status as Full Code Admission and Anticipated Discharge Date Admission Date: October 25, 2019 Subjective no motor deficits. eats the meals. no vomiting. no fever. no shortness of breath. no chest pain. on room air. no acute telemetry events. no dizziness. discussed hospital results and discharge instructions with patient and her daughter Review of Systems Review of Systems: All systems reviewed & are unremarkable except as noted in Subjective Physical Exam Constitutional: comfortable Eyes: PERRL, conjunctivae normal, anicteric sclerae EOM intact bilaterally ENMT: external ear and nose normal, oropharynx normal Neck: trachea midline, no thyromegaly normal visual inspection Respiratory: normal respiratory effort, lungs clear to auscultation Cardiovascular: Rate/Rhythm: regular rate and regular rhythm Gastrointestinal (Abdomen): normal bowel sounds, soft, nontender, no hepatosplenomegaly Musculoskeletal: Head/Neck/Chest: normocephalic and head atraumatic Neurologic: PERRL, EOMI, accommodation nl, no face palsy, no dysarthria moves all extremities Psychiatric: Orientation: alert and cooperative Results & Data Results & Data ([facility]) Vital Signs (Past 12 Hours) Vital Signs Temp Pulse Pulse Resp BP BP Pulse Ox 10/26/19 11:17 37.7 C H 95 H 18 126/68 97 10/26/19 07:37 86 10/26/19 07:13 36.9 C 88 20 121/59 L 95 10/26/19 03:36 37.5 C 82 19 144/83 H 97 10/26/19 00:01 76
--- NOTE | 2019-10-26 12:36 | Discharge Summary ---
Date of Service October 26, 2019 Admission HPI Per Admitting Provider This is a 73 year old Cam[place] (Cantonese dialect) speaking female patient who is not on any chronic medications who presents to the Emergency room accompanied by her daughter Keila (phone number [phone]) after patient experienced right sided weakness of upper and lower extremity after waking up in the morning. Patient was first taken to family medical doctor on for assessment and they referred her to the emergency room. As per the daughter, patient's total duration of symptoms was noticed for 3 hours and symptoms were still present at the family medical doctor office. However, these symptoms subsided by the time patient was evaluated in the emergency room. Emergency room provider discussed with hospitalist that patient outside the window for TPA in terms of number of hours from onset of symptoms and also because patient appears back to baseline motor strength/function. CT head No acute intracranial findings. CTA head unremarkable as per radiology impression. CTA neck: No significant stenosis, occlusion, or dissection identified within the carotid or vertebral arteries. Labs remarkable for white blood cell count of 15,000. Emergency room provider requested that patient to be placed under observation for work up of potential Transient Ischemic Attack As per hospitalist gather the history, I am fluent in Cantonese and patient insisted that she was feeling fine and attributed her initial motor deficits to old age or joint issues, but her daughter at bedside in the ED told me this does not appeared to be the case. Patient denies other acute symptoms - no chest discomforts, no abdomen discomforts, no fevers, no diarrhea, no problems with urination, no dysuria. Her Daughter Keila corroborated her health history and helped filled out the MRI safety sheet so that brain MRI can be performed Principal Diagnosis possible Transient Ischemic Attack Leukocytosis Elevated CRP and ESR Elevated Triglycerides Discharge Exam Constitutional comfortable Eyes PERRL, conjunctivae normal, anicteric sclerae EOM intact bilaterally ENMT external ear and nose normal, oropharynx normal Neck trachea midline, no thyromegaly normal visual inspection Respiratory normal respiratory effort, lungs clear to auscultation Cardiovascular Rate/Rhythm: regular rate and regular rhythm Gastrointestinal (Abdomen) normal bowel sounds, soft, nontender, no hepatosplenomegaly Musculoskeletal Head/Neck/Chest: normocephalic and head atraumatic Neurologic PERRL, EOMI, accommodation nl, no face palsy, no dysarthria moves all extremities Psychiatric Orientation: alert and cooperative Discharge Data Allergies Allergy/AdvReac Type Severity Reaction Status Date / Time alendronate sodium Allergy Unknown PER PT Verified 10/25/19 14:58 RECORD amoxicillin Allergy Unknown PER PT Verified 10/25/19 14:58 RECORD clarithromycin Allergy Unknown PER PT Verified 10/25/19 14:58 RECORD nabumetone Allergy Unknown PER PT Verified 10/25/19 14:58 RECORD Consultations 10/25/19 14:47 ED Decision to Admit Stat 10/25/19 15:38 Consult Neurology Routine 10/25/19 16:12 Consult Case Management - Discharge Planning Routine Ordered Studies 10/25/19 13:19 CT angio head w con Stat CT angio neck with con Stat CT head/brain wo con Stat 10/25/19 15:30 MR brain wo/w con Routine Hospital Course (1) Right arm weakness: (2) Right leg weakness: possible Transient Ischemic Attack Leukocytosis Elevated CRP and ESR Elevated Triglycerides -This is a 73 year old [place] (Cantonese dialect) speaking female patient who is not on any chronic medications who presents to the Emergency room accompanied by her daughter Keila (phone number [phone]) after patient experienced right sided weakness of upper and lower extremity after waking up in the morning. Patient was first taken to family medical doctor on for assessment and they referred her to the emergency room. As per the daughter, patient's total duration of symptoms was noticed for 3 hours and symptoms were still present at the family medical doctor office. However, these symptoms subsided by the time patient was evaluated in the emergency room. Emergency room provider discussed with hospitalist that patient outside the window for TPA in terms of number of hours from onset of symptoms and also because patient appears back to baseline motor strength/function. -CT head No acute intracranial findings. CTA head unremarkable as per radiology impression. CTA neck: No significant stenosis, occlusion, or dissection identified within the carotid or vertebral arteries. Labs remarkable for white blood cell count of 15.76 K/ul. Emergency room provider requested that patient to be placed under observation for work up of potential Transient Ischemic Attack -As per hospitalist gather the history, I am fluent in Cantonese and patient insisted that she was feeling fine and attributed her initial motor deficits to old age or joint issues, but her daughter at bedside in the ED told me this does not appeared to be the case. Patient denies other acute symptoms - no chest discomforts, no abdomen discomforts, no fevers, no diarrhea, no problems with urination, no dysuria. Her Daughter Keila corroborated her health history and helped filled out the MRI safety sheet so that brain MRI can be performed -Brain MRI 10/25/2019 There are no foci of restricted diffusion to suggest acute infarct. No acute intracranial hemorrhage, midline shift or mass effect is present. Ventricular system is unremarkable. Basilar cisterns are patent. There are no extra-axial collections. Flow-voids for the major intracranial vessels are present. Scattered white matter T2 hyperintense foci suggest mild small vessel disease. There is no intracranial mass or pathologic enhancement. Calvarial signal is normal. Orbits and sinuses are unremarkable. Is no mastoid fluid. IMPRESSION: No acute intracranial findings. -patient was started on aspirin 81 mg daily starting on 10/25/2019 and because of elevated non fasting Triglycerides she was started also on atorvastatin 40 mg daily. The repeat lipid panel on 10/26/2019 does show low LDL a[address] have prescribed[address] Cordero from neurology advising to discharge with aspirin 81 mg daily in case of Transient Ischemic Attack but he wishes to have patient seen in the outpatient setting given that all motor deficits have resolved on this hospital presentation and outpatient ZIO patch which can be coordinated by outpatient providers -Patient has scheduled appointments to 11/02/2019 11:00 AM Provider Abner Simmons III, MD Department Family Practice [facility] and 11/07/2019 12:00 PM Provider Imelda Barcenas PA-C Department Neurology [facility] -sent prescription of aspirin 81 mg daily for 30 day supply to [facility] [address] [place] [address] and also 10 day trial of atorvastatin 40 mg daily. Patient should have repeat fasting lipid panels repeated by family medical doctor -Patient was monitored on telemetry and remains in sinus rhythm. An echocardiogram was preformed on 10/26/2019 with results pending to rule out any atrial septal defects -the admission WBC was 15.76 K/ul and with normal procalcitonin levels and patient not septic on admission. normal urine analysis. no pneumonia on Chest X ray. The WBC did not trend down significantly after IV fluids on 10/25/2019 as the WBC 14.87. she remains afebrile but there were elevated inflammatory markers on admission as CRP was elevated as 5.74 and ESR > 90. Daughter wishes to have patient be discharged as no further motor deficits by 10/26/2019 and reported that patient did well with Physical Therapy/Occupational Therapy/and Speech services.. She allows for patient to have blood cultures drawn on 10/26/2019 and be notified if these results are abnormal Keila (phone number [phone]) affirms patient's code status as Full Code Total Time Total Time Spent Total Time Spent (In Minutes): 40 minutes Total Time Includes: Examination of the Patient, Discharge Planning, Medication Reconciliation and Communication With Other Providers Discharge Plan Discharge Items Patient Disposition: Home - Self-Care Reason For Visit: RULE OUT STROKE OR TIA,RIGHT SIDED WEAKNESS WHICH Discharge Diagnosis: Right arm weakness: Right leg weakness: possible Transient Ischemic Attack Leukocytosis Elevated CRP and ESR Elevated Triglycerides Condition on Discharge: Good Activity: Per Instructions section Non-emergency contact: Primary Care Provider and Neurologist Call non-emergency contact if: you have any medication questions Follow-up/Referrals: Abner Simmons MD [Primary Care Provider] - Diet: Heart Healthy Luther Attending Provider Instructions: 11/02/2019 11:00 AM Provider Abner Simmons III, MD Department Family Practice [facility] 11/07/2019 12:00 PM Provider Imelda Barcenas PA-C Department Neurology [facility] sent prescription of aspirin 81 mg daily for 30 day supply to [facility] [address] [place] [address] and also 10 day trial of atorvastatin 40 mg daily. Patient should have repeat fasting lipid panels repeated by family medical doctor [employer] Tr[employer] Provider Instructions: -This is a 73 year old [place] (Cantonese dialect) speaking female patient who is not on any chronic medications who presents to the Emergency room accompanied by her daughter Keila (phone number [phone]) after patient experienced right sided weakness of upper and lower extremity after waking up in the morning. Patient was first taken to family medical doctor on for assessment and they referred her to the emergency room. As per the daughter, patient's total duration of symptoms was noticed for 3 hours and symptoms were still present at the family medical doctor office. However, these symptoms subsided by the time patient was evaluated in the emergency room. Emergency room provider discussed with hospitalist that patient outside the window for TPA in terms of number of hours from onset of symptoms and also because patient appears back to baseline motor strength/function. -CT head No acute intracranial findings. CTA head unremarkable as per radiology impression. CTA neck: No significant stenosis, occlusion, or dissection identified within the carotid or vertebral arteries. Labs remarkable for white blood cell count of 15.76 K/ul. Emergency room provider requested that patient to be placed under observation for work up of potential Transient Ischemic Attack -As per hospitalist gather the history, I am fluent in Cantonese and patient insisted that she was feeling fine and attributed her initial motor deficits to old age or joint issues, but her daughter at bedside in the ED told me this does not appeared to be the case. Patient denies other acute symptoms - no chest discomforts, no abdomen discomforts, no fevers, no diarrhea, no problems with urination, no dysuria. Her Daughter Keila corroborated her health history and helped filled out the MRI safety sheet so that brain MRI can be performed -Brain MRI 10/25/2019 There are no foci of restricted diffusion to suggest acute infarct. No acute intracranial hemorrhage, midline shift or mass effect is present. Ventricular system is unremarkable. Basilar cisterns are patent. There are no extra-axial collections. Flow-voids for the major intracranial vessels are present. Scattered white matter T2 hyperintense foci suggest mild small vessel disease. There is no intracranial mass or pathologic enhancement. Calvarial signal is normal. Orbits and sinuses are unremarkable. Is no mastoid fluid. IMPRESSION: No acute intracranial findings. -patient was started on aspirin 81 mg daily starting on 10/25/2019 and because of elevated non fasting Triglycerides she was started also on atorvastatin 40 mg daily. The repeat lipid panel on 10/26/2019 does show low LDL a30 have prescribed[address] Dr[address] Cordero from neurology advising to discharge with aspirin 81 mg daily in case of Transient Ischemic Attack but he wishes to have patient seen in the outpatient setting given that all motor deficits have resolved on this hospital presentation and outpatient ZIO patch which can be coordinated by outpatient providers -Patient has scheduled appointments to 11/02/2019 11:00 AM Provider Abner Simmons III, MD Department Family Practice [facility] and 11/07/2019 12:00 PM Provider Imelda Barcenas PA-C Department Neurology [facility] -sent prescription of aspirin 81 mg daily for 30 day supply to [facility] [address] [place] [address] and also 10 day trial of atorvastatin 40 mg daily. Patient should have repeat fasting lipid panels repeated by family medical doctor -Patient was monitored on telemetry and remains in sinus rhythm. An echocardiogram was preformed on 10/26/2019 with results pending to rule out any atrial septal defects -the admission WBC was 15.76 K/ul and with normal procalcitonin levels and patient not septic on admission. normal urine analysis. no pneumonia on Chest X ray. The WBC did not trend down significantly after IV fluids on 10/25/2019 as the WBC 14.87. she remains afebrile but there were elevated inflammatory markers on admission as CRP was elevated as 5.74 and ESR > 90. Daughter wishes to have patient be discharged as no further motor deficits by 10/26/2019 and reported that patient did well with Physical Therapy/Occupational Therapy/and Speech services.. She allows for patient to have blood cultures drawn on 10/26/2019 and be notified if these results are abnormal Pending Studies at Discharge: Yes Studies:: echocardiogram and blood cultures from 10/26/2019 Stand-Alone Forms: [facility], Smoking Cessation Medications and DC Order Prescriptions: New aspirin 81 mg Tablet,Delayed Release (Dr/Ec) 81 mg PO DAILY 30 Days Qty: 30 RF: 0 atorvastatin 40 mg Tablet 40 mg PO QAM 10 Days Qty: 10 RF: 0 Continued multivitamin Tablet 1 tab PO QAM RF: 0 loratadine [Claritin] 10 mg tablet 10 mg PO DAILY PRN (Reason: Allergy Symptoms) RF: 0 acetaminophen [Tylenol] 325 mg Tablet 325 mg PO QID PRN (Reason: Pain) RF: 0 Discharge Orders: Discharge Order (Routine); Ordered 10/26/19 Ordered By: Giovany Agustin/Other Patient Handouts: A1C Admission Data Admit Date/Time: 10/25/19 15:40 Attending Provider: Giovany Taylor Admit Provider: Giovany Taylor Primary Care Provider: Abner Simmons Other Providers: Giovany Taylor ; Imelda Campuzano
[2019-10-26 12:48] VITALS: BP 144/83
--- NOTE | 2019-11-01 11:19 | Coding Query ---
A supporting diagnosis is required for the test/procedure performed on this patient in order for us to be reimbursed by the patient's insurance. Please provide a supporting diagnosis for the following test/procedure listed below next to the test name along with your signature. *If there is no additional diagnosis for this patient that would support the following test/procedure please document that below next to the test/procedure. Test(s)/Procedure(s) that require a supporting diagnosis: * Q9957 INJ PERFLUTREN LIP MICROS 1ML-ECHO DIAGNOSIS: Transient Ischemic attack (TIA) * 63297 GLYCATED HEMOGLOBIN DIAGNOSIS: Transient Ischemic attack (TIA) DATE OF SERVICE: 10/25/19 Provider Signature: Date: Thank you Mario Perez Health Information Management Once completed, please kindly fax back to [phone] For questions please call [phone] ANTHONY
== END 2019-10-26 13:38 | disposition home or self-care (01) ==
LOC: ED 13:02 → 2N 13:02

== ENCOUNTER 2019-12-28 10:32 | Inpatient (IN) ==
[2019-12-28] MEDS ORDERED: HYDROCORTISONE SOD SUCCINATE 100 MG/2 ML VIAL IV STA (10:42)
[2019-12-28] MEDS ORDERED: ONDANSETRON INJ 2 MG/ML 2 ML VIAL IV STA (10:44)
[2019-12-28] MEDS ORDERED: ACETAMINOPHEN 1,000 MG/100 ML VIAL IV STA (10:44)
[2019-12-28] MEDS ORDERED: CEFEPIME 2,000 MG/20 ML VIAL IV STA (10:44)
[2019-12-28] MEDS ORDERED: DAPTOMYCIN CONSULT ACTIVE PRN (10:54)
[2019-12-28] MEDS ORDERED: DAPTOmycin 350 MG in SYRINGE 0 ML IV ONE (10:54)
[2019-12-28 11:19] LABS: Basophils # (auto) 0.01 K/uL (0-0.2); Eosinophils # (auto) 0.01 K/uL (0-0.5); Hematocrit (blood only) 35.5 % (37-47); Hemoglobin 11.4 g/dL (12.0-16.0); Immature Granulocytes # (auto) 0.15 K/uL (0.00-0.02); Immature Granulocytes % (auto) 0.7 %; Lymphocytes # (auto) 2.31 K/uL (1.2-3.4); Lymphocytes % (auto) 11.3 %; Mean Corpuscular Hemoglobin 20.3 pg (25-34); Mean Corpuscular Hgb Conc 32.1 g/dL (32-36); Mean Corpuscular Volume 63.2 fL (80-100); Mean Platelet Volume 8.3 fL (7.4-10.4); Monocytes # (auto) 1.51 K/uL (0.11-0.59); Monocytes % (auto) 7.4 %; Neutrophils % (auto) 80.6 %; Nucleated RBC # (auto) 0.02 K/uL (0-0); Nucleated RBC % (auto) 0.1 %; Platelet Count 277 K/uL (130-400); RDW Coefficient of Variation 17.8 % (11.5-14.5); RDW Standard Deviation 40.1 fL (36.4-46.3); Red Blood Count 5.62 M/uL (4.2-5.4); White Blood Count 20.39 K/uL (4.8-10.8)
[2019-12-28 11:36] LABS: Partial Thromboplastin Time 27.9 Seconds (21.0-31.0); Prothrombin Time 10.7 Seconds (9.0-12.0)
[2019-12-28 11:42] LABS: Alanine Aminotransferase 73 U/L (12-78); Albumin Level 2.7 gm/dl (3.4-5.0); Aspartate Aminotransferase 47 U/L (15-37); BUN Creatinine Ratio 21.3 (10-20); Blood Urea Nitrogen 15 mg/dl (7-18); Calcium 8.7 mg/dl (8.5-10.1); Carbon Dioxide 25 mmol/L (21-32); Chloride 101 mmol/L (98-107); Creatinine Clr Calc Pharmacy 60.9 ml/min; Est GFR (African American) 97.9; Est GFR (Non-African American) 84.5; Glucose 123 mg/dl (70-99); Magnesium 2.2 mg/dl (1.8-2.4); Potassium 3.4 mmol/L (3.5-5.1); Sodium 136 mmol/L (136-145)
--- NOTE | 2019-12-28 11:42 | XRay Report ---
XR chest 1V portable CLINICAL HISTORY: SEPSIS COMPARISON STUDY: 10/25/2019 FINDINGS: The cardiac and mediastinal contours are normal. There is no evidence of focal pulmonary co nsolidation. There is no evidence of failure. No pleural effusions are visualized.[There is slight co arsening of the interstitial markings likely related to technical factors. IMPRESSION: No active disease in the chest. ACT 112: Negative or not required by law. Electronically signed by: Bijan Valentine M.D. 12/28/2019 11:41 AM
[2019-12-28] MEDS ORDERED: SODIUM CHLORIDE 0.9% 500 ML IV ONE (11:43)
[2019-12-28 11:47] LABS: Albumin Globulin Ratio 0.5 (0.9-2); Alkaline Phosphatase 76 U/L (45-117); Bilirubin,Total 1.3 mg/dl (0.2-1); Ferritin 197.4 ng/ml (8-388); Globulin 5.1 gm/dl (2.5-4.0); Total Protein 7.8 gm/dl (6.4-8.2); Troponin I < 0.015 ng/ml (0-0.045)
[2019-12-28] MEDS ORDERED: SODIUM CHLORIDE 0.9% 1000ML 1,000 ML IV ONE (12:05)
[2019-12-28 12:06] LABS: Hypochromasia Present; Microcytosis Present
--- NOTE | 2019-12-28 12:07 | Emergency Department Note ---
History of Present Illness General Chief complaint: Pain (Generalized) Time Seen by Provider: 12/28/19 10:33 Source: patient, family (daughter), EMS, RN notes reviewed and old records reviewed Mode of arrival: ambulatory Limitations: language barrier History of Present Illness Provider complaint: fever, weakness Onset (ago): day(s) 1 Location: upper extremity and lower extremity Radiation: distal Severity: severe Pain Consistency: + constant Maximum Pain Intensity: 10 Current Pain Intensity: 10 Quality: + aching Relieved By: + immobilization Exacerbated By: + movement Associated symptoms: + cough, + fever/chills and + weakness; no diaphoresis, no headaches, no nausea/vomiting and no shortness of breath Treatments prior to arrival: none This is a 74-year-old female who presents the emergency department after a fall at home. 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 The patient was found on the ground at home this morning by her daughter. The patient reports she has been feeling weak. She is on prednisone daily. She is complaining of pain in her hands as well as her feet. She describes the pain as a burning sensation made worse with movement however immobilization makes everything feel better. She has not taken anything for the pain or the fever prior to arrival. Home Medications Home Medications Medication Instructions Recorded Confirmed Type multivitamin 1 tab PO QAM 01/21/19 12/28/19 History acetaminophen [Tylenol] 325 mg PO QID PRN 10/25/19 12/28/19 History aspirin 81 mg PO DAILY 12/28/19 12/28/19 History isoniazid 300 mg PO DAILY 12/28/19 12/28/19 History prednisone 30 mg PO DAILY 12/28/19 12/28/19 History pyridoxine (vitamin B6) [Vitamin 25 mg PO DAILY 12/28/19 12/28/19 History B-6] Allergies Allergy/AdvReac Type Severity Reaction Status Date / Time alendronate sodium Allergy Unknown PER PT Verified 12/28/19 11:02 RECORD amoxicillin Allergy Unknown PER PT Verified 12/28/19 11:02 RECORD clarithromycin Allergy Unknown PER PT Verified 12/28/19 11:02 RECORD nabumetone Allergy Unknown PER PT Verified 12/28/19 11:02 RECORD Past Med/Surg History Medical History Chronic viral hepatitis B GCA (giant cell arteritis) History of appendicitis Latent tuberculosis Surgical History History of appendectomy History of temporal artery biopsy History of tubal ligation Hx of cholecystectomy Family History Brother Diabetes Father Coronary heart disease Mother Rheumatoid arthritis Social History Smoking Status: Never smoker Hx Alcohol Use: No Hx Substance Use: No Preferred Language: Cantonese Icelandic Communication Ability: Effective Communication Tools: IPad, Facial Expression and Physical Gestures 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 Beliefs That Will Affect Care: None marital status: / Current Living Situation: Alone Other Information That Helps Us Care for You: No Feels Safe at Home: Yes Safety Concerns: Feels Safe At This Time Assistive Devices: None Review of Systems A total of 10 systems reviewed and were otherwise negative Physical Exam Vital Signs Vital Signs - 24 hr 12/28/19 10:44 Temperature 38 C H Temperature Source Oral Pulse Rate 120 H Respiratory Rate 20 Blood Pressure 184/111 H Blood Pressure Mean 135 Pulse Oximetry 97 Oxygen Delivery Method Room Air Sepsis Recent Fever Within 48 Hours Yes Sepsis New/Unexplained Change in Mental Status N/A Sepsis Action Taken by Nursing Physician Notified VITAL SIGNS - Vital signs and nursing notes were reviewed. GENERAL - 74-year-old female appearing stated age who is in no acute distress. Communicates well with provider and answers questions appropriately. SKIN - Without rashes. HEAD - NC/AT. EYES - PERRL with EOMI bilaterally. Sclera anicteric. Palpebral conjunctiva pink and moist with no injection noted. EARS - No deformities of external structures noted on gross examination bilaterally. No pain elicited with palpation of the tragus bilaterally. External auditory canals without discharge or otorrhea. Tympanic membranes pearly hsieh without retraction or bulging. No fluid or purulent material visualized behind the TM. Handle of malleus, umbo, cone of light, pars tensa/flaccid all easily visualized. NOSE - Midline and without cyanosis. No epistaxis or purulent drainage noted. Septum midline without deviation or septal hematoma noted. MOUTH/OROPHARYNX - Without perioral cyanosis. Buccal mucosa pink and moist and without leukoplakia. Tongue midline with equal elevation of palate bilaterally. No tonsillar hypertrophy, erythema, or exudates noted. dentition noted. NECK - Neck with FROM. Supple to palpation. lymphadenopathy noted. No nuchal rigidity. LUNGS - Chest wall symmetric without accessory muscle use, intercostals retractions, or central cyanosis. Normal vesicular breath sounds CTA B/L. No wheezes, rales, or rhonchi appreciated. CARDIAC - RRR with S1/S2. No murmur, rubs, or gallops appreciated. ABDOMEN - Abdominal contour without pulsations or visible masses. BS normoacti ve all four quadrants. No tenderness, palpable masses, hepatosplenomegaly, or ascites noted. EXTREMITIES - No clubbing or peripheral cyanosis. No pretibial edema present. +3/5 radial, posterior tibial, and dorsalis pedis pulses palpated throughout. +5/5 strength noted in UE/LE bilaterally. NEUROLOGIC - Cranial nerves II through XII grossly intact. Sensory intact to light touch throughout. Patellar reflexes +2/4. PSYCH - A&Ox3 and cooperates fully with examiner. Pt is very pleasant and interacts well with examiner. Course Administered Medications Aspirin (Aspirin 81 Mg Ectab) 81 mg PO DAILY [facility] Stop: 01/28/20 08:59 Last Admin: 12/29/19 08:01 Dose: 81 mg Documented by: [id number] Doxycycline Hyclate (Doxycycline Hyclate 100 Mg Cap) 100 mg PO BID RENATA; Protocol Stop: 12/30/19 20:59 Last Admin: 12/29/19 08:01 Dose: 100 mg Documented by: [id number] Admin: 12/28/19 20:00 Dose: 100 mg Documented by: [id number] Enoxaparin Sodium (Enoxaparin Inj 40 Mg/0.4 Ml Syr) 40 mg SQ Q24H RENATA Stop: 01/27/20 20:59 Last Admin: 12/28/19 20:00 Dose: 40 mg Documented by: [id number] Aztreonam 2,000 mg/ Dextrose 110 mls @ 110 mls/hr IV Q8H RENATA; Protocol Stop: 12/30/19 21:59 Last Admin: 12/29/19 12:52 Dose: 110 mls/hr Documented by: [id number] Infusion: 12/29/19 08:00 Dose: 0 mls/hr Documented by: [id number] Admin: 12/29/19 06:20 Dose: 110 mls/hr Documented by: [id number] Infusion: 12/28/19 23:31 Dose: 0 mls/hr Documented by: [id number] Admin: 12/28/19 22:30 Dose: 110 mls/hr Documented by: [id number] Isoniazid (Isoniazid 100 Mg Tab) 100 mg PO DAILY RENATA Stop: 01/28/20 08:59 Last Admin: 12/29/19 08:01 Dose: 100 mg Documented by: [id number] Metoprolol Tartrate (Metoprolol Tartrate 25 Mg Tab) 12.5 mg PO BID RENATA Stop: 01/28/20 10:14 Last Admin: 12/29/19 11:44 Dose: 12.5 mg Documented by: [id number] [facility]ivit[facility] ([facility]itamin Tab) [facility] [place]: 01/28/20 08:59 Last Admin: 12/29/19 08:01 Dose: 1 tab Documented by: [id number] Prednisone (Prednisone 10 Mg Tablet) 30 mg PO DAILY [facility]; Taper Stop: 01/13/20 08:59 Last Admin: 12/29/19 08:01 Dose: 30 mg Documented by: [id number] Pyridoxine HCl (Pyridoxine Hcl 50 Mg Tab) 25 mg PO DAILY [facility] Stop: 01/28/20 08:59 Last Admin: 12/29/19 08:02 Dose: 25 mg Documented by: [id number] Discontinued Medications Hydrocortisone Sodium Succinate (Hydrocortisone Sod Succinate 100 Mg/2 Ml Vial) 100 mg IV NOW STA Stop: 12/28/19 10:43 Last Admin: 12/28/19 11:51 Dose: 100 mg Documented by: [id number] Cefepime HCl (Maxipime) 2,000 mg in 20 mls @ 5 mls/min IV NOW STA; Protocol Stop: 12/28/19 10:47 Last Admin: 12/28/19 12:09 Dose: Not Given Documented by: [id number] Acetaminophen (Ofirmev) 1,000 mg in 100 mls @ 400 mls/hr IV NOW STA Stop: 12/28/19 10:58 Last Infusion: 12/28/19 12:01 Dose: 0 mls/hr Documented by: [id number] Admin: 12/28/19 11:41 Dose: 400 mls/hr Documented by: [id number] Daptomycin 350 mg/ Syringe 7 mls @ 3.5 mls/min IV NOW ONE; Protocol Stop: 12/28/19 10:55 Last Admin: 12/28/19 11:50 Dose: 3.5 mls/min Documented by: [id number] Sodium Chloride (Nss) 500 mls @ 999 mls/hr IV .Q31M ONE Stop: 12/28/19 12:13 Last Infusion: 12/28/19 12:23 Dose: 0 mls/hr Documented by: [id number] Admin: 12/28/19 11:51 Dose: 999 mls/hr Documented by: [id number] Sodium Chloride (Nss 1000ml) 1,000 mls @ 999 mls/hr IV .Q1H1M ONE Stop: 12/28/19 13:05 Last Infusion: 12/28/19 14:24 Dose: 0 mls/hr Documented by: [id number] Admin: 12/28/19 13:15 Dose: 999 mls/hr Documented by: [id number] Aztreonam 2,000 mg/ Dextrose 110 mls @ 110 mls/hr IV NOW STA Stop: 12/28/19 13:18 Last Infusion: 12/28/19 14:24 Dose: 0 mls/hr Documented by: [id number] Admin: 12/28/19 13:15 Dose: 110 mls/hr Documented by: [id number] Sodium Chloride (Nss 1000ml) 500 mls @ 999 mls/hr IV .Q31M ONE Stop: 12/28/19 14:20 Last Infusion: 12/28/19 15:21 Dose: 0 mls/hr Documented by: [id number] Admin: 12/28/19 14:45 Dose: 999 mls/hr Documented by: [id number] Sodium Chloride (Nss 1000ml) 1,000 mls @ 60 mls/hr IV .[id number] RENATA Stop: 12/29/19 07:09 Last Infusion: 12/29/19 06:21 Dose: 0 mls/hr Documented by: [id number] Admin: 12/28/19 14:45 Dose: 60 mls/hr Documented by: [id number] Ketorolac Tromethamine (Ketorolac Tromethamine 15 Mg/Ml Vial) 15 mg IV NOW ONE Stop: 12/29/19 11:38 Last Admin: 12/29/19 11:47 Dose: 15 mg Documented by: [id number] Ondansetron HCl (Ondansetron Inj 2 Mg/Ml 2 Ml Vial) 4 mg IV NOW STA Stop: 12/28/19 10:45 Last Admin: 12/28/19 11:51 Dose: 4 mg Documented by: [id number] Pneumococcal Polyvalent Vaccine (Pneumococcal Polysaccharide Vaccine 25mcg/0.5ml Vial/Syr) 25 mcg IM .ONCE ONE Stop: 12/29/19 08:01 Last Admin: 12/29/19 08:07 Dose: Not Given Documented by: [id number] Potassium Chloride (Potassium Chloride 20 Meq Tabcr) 40 meq PO NOW STA Stop: 12/28/19 13:22 Last Admin: 12/28/19 14:50 Dose: Not Given Documented by: [id number] Potassium Chloride (Potassium Chloride 20 Meq Tabcr) 20 meq PO NOW STA Stop: 12/29/19 08:11 Last Admin: 12/29/19 08:32 Dose: 20 meq Documented by: [id number] Medical Decision Making Differential Diagnosis Sepsis, UTI, pneumonia, metabolic, electrolyte abnormalities, cardiac sources, intracerebral event, toxicologic, neurologic, as well as other pathologies. Medical Records Attestation: I reviewed the patient's medical records. Home Medications Current Medication List: was personally reviewed by me Laboratory Data Attestation: I reviewed the patient's lab results. Result diagrams: 12/29/19 05:23 12/29/19 05:23 Lab Results 12/28/19 12/28/19 12/28/19 Range/Units 11:07 11:07 11:07 WBC 20.39 H (4.8-10.8) K/uL RBC 5.62 H (4.2-5.4) M/uL Hgb 11.4 L (12.0-16.0) g/dL Hct 35.5 L (37-47) % MCV 63.2 L (80-100) fL MCH 20.3 L (25-34) pg MCHC 32.1 (32-36) g/dL RDW Std Deviation 40.1 (36.4-46.3) fL RDW Coeff of [place] 17.8 H (11.5-14.5) % Plt Count 277 (130-400) K/uL MPV 8.3 (7.4-10.4) fL Immature Gran % (Auto) 0.7 % Neut % (Auto) 80.6 % Lymph % (Auto) 11.3 % [place] % (Auto) 7.4 % Eos % (Auto) 0.0 % Baso % (Auto) 0.0 % Neut # (Auto) 16.40 H (1.4-6.5) K/uL Lymph # (Auto) 2.31 (1.2-3.4) K/uL [place] # (Auto) 1.51 H (0.11-0.59) K/uL Eos # (Auto) 0.01 (0-0.5) K/uL Baso # (Auto) 0.01 (0-0.2) K/uL Immature Gran # (Auto) 0.15 H (0.00-0.02) K/uL Absolute Nucleated RBC 0.02 H (0-0) K/uL Nucleated RBC % (auto) 0.1 % Hypochromasia Present Microcytosis Present ESR > 90 H (0-21) mm/hr PT 10.7 (9.0-12.0) Seconds INR 1.0 (0.9-1.1) APTT 27.9 (21.0-31.0) Seconds PTT Ratio 1.0 Sodium (136-145) mmol/L Potassium (3.5-5.1) mmol/L Chloride (98-107) mmol/L Carbon Dioxide (21-32) mmol/L Anion Gap (3-11) BUN (7-18) mg/dl Creatinine (0.6-1.2) mg/dl Est Cr Clr Drug Dosing ml/min Est GFR ( Amer) Est GFR (Non-Af Amer) BUN/Creatinine Ratio (10-20) Glucose (70-99) mg/dl Lactate (0.4-2.0) mmol/L Uric Acid (2.6-7.2) mg/dl Calcium (8.5-10.1) mg/dl Magnesium (1.8-2.4) mg/dl Ferritin (8-388) ng/ml Total Bilirubin (0.2-1) mg/dl AST (15-37) U/L ALT (12-78) U/L Alkaline Phosphatase (45-117) U/L Lactate Dehydrogenase (84-246) U/L Total Creatine Kinase (26-192) U/L CK-MB (CK-2) (0.5-3.6) ng/ml CK/CKMB % Calc Troponin I (0-0.045) ng/ml C-Reactive Protein (0-0.29) mg/dl Total Protein (6.4-8.2) gm/dl Albumin (3.4-5.0) gm/dl Globulin (2.5-4.0) gm/dl Albumin/Globulin Ratio (0.9-2) Procalcitonin (0-0.5) ng/ml Random Cortisol mcg/dl Urine Color Urine Appearance (Clear) Urine pH (4.5-7.5) Ur Specific [place] (1.000-1.030) Urine Protein (Negative) Urine Glucose (UA) (Negative) Urine Ketones (Negative) Urine Blood (Negative) Urine Nitrite (Negative) Urine Bilirubin (Negative) Urine Urobilinogen (Negative) Ur Leukocyte Esterase (Negative) Urine WBC (Auto) (0-5) /hpf Urine RBC (Auto) (0-4) /hpf U Hyaline Cast (Auto) (0-5) /lpf U Epithel Cells (Auto) (0-5) /lpf Urine Bacteria (Auto) (Negative) Cycl Citrul Peptide IgG (0-4.99) U/ml Lyme Disease IgG Ab (Negative) Lyme Disease IgM Ab (Negative) COVID-19 Eval Order COVID-19 PCR (Negative) 12/28/19 12/28/19 12/28/19 Range/Units 11:07 11:07 11:07 WBC (4.8-10.8) K/uL RBC (4.2-5.4) M/uL Hgb (12.0-16.0) g/dL Hct (37-47) % MCV (80-100) fL MCH (25-34) pg MCHC (32-36) g/dL RDW Std Deviation (36.4-46.3) fL RDW Coeff of [place] (11.5-14.5) % Plt Count (130-400) K/uL MPV (7.4-10.4) fL Immature Gran % (Auto) % Neut % (Auto) % Lymph % (Auto) % [place] % (Auto) % Eos % (Auto) % Baso % (Auto) % Neut # (Auto) (1.4-6.5) K/uL Lymph # (Auto) (1.2-3.4) K/uL [place] # (Auto) (0.11-0.59) K/uL Eos # (Auto) (0-0.5) K/uL Baso # (Auto) (0-0.2) K/uL Immature Gran # (Auto) (0.00-0.02) K/uL Absolute Nucleated RBC (0-0) K/uL Nucleated RBC % (auto) % Hypochromasia Microcytosis ESR (0-21) mm/hr PT (9.0-12.0) Seconds INR (0.9-1.1) APTT (21.0-31.0) Seconds PTT Ratio Sodium 136 (136-145) mmol/L Potassium 3.4 L (3.5-5.1) mmol/L Chloride 101 (98-107) mmol/L Carbon Dioxide 25 (21-32) mmol/L Anion Gap 10.0 (3-11) BUN 15 (7-18) mg/dl Creatinine 0.71 (0.6-1.2) mg/dl Est Cr Clr Drug Dosing 60.9 ml/min Est GFR ( Amer) 97.9 Est GFR (Non-Af Amer) 84.5 BUN/Creatinine Ratio 21.3 H (10-20) Glucose 123 H (70-99) mg/dl Lactate 3.0 H* (0.4-2.0) mmol/L Uric Acid (2.6-7.2) mg/dl Calcium 8.7 (8.5-10.1) mg/dl Magnesium 2.2 (1.8-2.4) mg/dl Ferritin 197.4 (8-388) ng/ml Total Bilirubin 1.3 H (0.2-1) mg/dl AST 47 H (15-37) U/L ALT 73 (12-78) U/L Alkaline Phosphatase 76 (45-117) U/L Lactate Dehydrogenase (84-246) U/L Total Creatine Kinase (26-192) U/L CK-MB (CK-2) (0.5-3.6) ng/ml CK/CKMB % Calc Troponin I < 0.015 (0-0.045) ng/ml C-Reactive Protein 13.30 H (0-0.29) mg/dl Total Protein 7.8 (6.4-8.2) gm/dl Albumin 2.7 L (3.4-5.0) gm/dl Globulin 5.1 H (2.5-4.0) gm/dl Albumin/Globulin Ratio 0.5 L (0.9-2) Procalcitonin (0-0.5) ng/ml Random Cortisol 23.59 mcg/dl Urine Color Urine Appearance (Clear) Urine pH (4.5-7.5) Ur Specific [place] (1.000-1.030) Urine Protein (Negative) Urine Glucose (UA) (Negative) Urine Ketones (Negative) Urine Blood (Negative) Urine Nitrite (Negative) Urine Bilirubin (Negative) Urine Urobilinogen (Negative) Ur Leukocyte Esterase (Negative) Urine WBC (Auto) (0-5) /hpf Urine RBC (Auto) (0-4) /hpf U Hyaline Cast (Auto) (0-5) /lpf U Epithel Cells (Auto) (0-5) /lpf Urine Bacteria (Auto) (Negative) Cycl Citrul Peptide IgG (0-4.99) U/ml Lyme Disease IgG Ab (Negative) Lyme Disease IgM Ab (Negative) COVID-19 Eval Order COVID-19 PCR (Negative) 12/28/19 12/28/19 12/28/19 Range/Units 11:07 11:07 11:07 WBC (4.8-10.8) K/uL RBC (4.2-5.4) M/uL Hgb (12.0-16.0) g/dL Hct (37-47) % MCV (80-100) fL MCH (25-34) pg MCHC (32-36) g/dL RDW Std Deviation (36.4-46.3) fL RDW Coeff of [place] (11.5-14.5) % Plt Count (130-400) K/uL MPV (7.4-10.4) fL Immature Gran % (Auto) % Neut % (Auto) % Lymph % (Auto) % [place] % (Auto) % Eos % (Auto) % Baso % (Auto) % Neut # (Auto) (1.4-6.5) K/uL Lymph # (Auto) (1.2-3.4) K/uL [place] # (Auto) (0.11-0.59) K/uL Eos # (Auto) (0-0.5) K/uL Baso # (Auto) (0-0.2) K/uL Immature Gran # (Auto) (0.00-0.02) K/uL Absolute Nucleated RBC (0-0) K/uL Nucleated RBC % (auto) % Hypochromasia Microcytosis ESR (0-21) mm/hr PT (9.0-12.0) Seconds INR (0.9-1.1) APTT (21.0-31.0) Seconds PTT Ratio Sodium (136-145) mmol/L Potassium (3.5-5.1) mmol/L Chloride (98-107) mmol/L Carbon Dioxide (21-32) mmol/L Anion Gap (3-11) BUN (7-18) mg/dl Creatinine (0.6-1.2) mg/dl Est Cr Clr Drug Dosing ml/min Est GFR ( Amer) Est GFR (Non-Af Amer) BUN/Creatinine Ratio (10-20) Glucose (70-99) mg/dl Lactate (0.4-2.0) mmol/L Uric Acid (2.6-7.2) mg/dl Calcium (8.5-10.1) mg/dl Magnesium (1.8-2.4) mg/dl Ferritin (8-388) ng/ml Total Bilirubin (0.2-1) mg/dl AST (15-37) U/L ALT (12-78) U/L Alkaline Phosphatase (45-117) U/L Lactate Dehydrogenase 243 (84-246) U/L Total Creatine Kinase 71 (26-192) U/L CK-MB (CK-2) < 1.0 (0.5-3.6) ng/ml CK/CKMB % Calc TNP Troponin I (0-0.045) ng/ml C-Reactive Protein (0-0.29) mg/dl Total Protein (6.4-8.2) gm/dl Albumin (3.4-5.0) gm/dl Globulin (2.5-4.0) gm/dl Albumin/Globulin Ratio (0.9-2) Procalcitonin 0.15 (0-0.5) ng/ml Random Cortisol mcg/dl Urine Color Urine Appearance (Clear) Urine pH (4.5-7.5) Ur Specific [place] (1.000-1.030) Urine Protein (Negative) Urine Glucose (UA) (Negative) Urine Ketones (Negative) Urine Blood (Negative) Urine Nitrite (Negative) Urine Bilirubin (Negative) Urine Urobilinogen (Negative) Ur Leukocyte Esterase (Negative) Urine WBC (Auto) (0-5) /hpf Urine RBC (Auto) (0-4) /hpf U Hyaline Cast (Auto) (0-5) /lpf U Epithel Cells (Auto) (0-5) /lpf Urine Bacteria (Auto) (Negative) Cycl Citrul Peptide IgG (0-4.99) U/ml Lyme Disease IgG Ab (Negative) Lyme Disease IgM Ab (Negative) COVID-19 Eval Order COVID-19 PCR (Negative) 12/28/19 12/28/19 12/28/19 Range/Units 11:07 11:07 11:07 WBC (4.8-10.8) K/uL RBC (4.2-5.4) M/uL Hgb (12.0-16.0) g/dL Hct (37-47) % MCV (80-100) fL MCH (25-34) pg MCHC (32-36) g/dL RDW Std Deviation (36.4-46.3) fL RDW Coeff of [place] (11.5-14.5) % Plt Count (130-400) K/uL MPV (7.4-10.4) fL Immature Gran % (Auto) % Neut % (Auto) % Lymph % (Auto) % [place] % (Auto) % Eos % (Auto) % Baso % (Auto) % Neut # (Auto) (1.4-6.5) K/uL Lymph # (Auto) (1.2-3.4) K/uL [place] # (Auto) (0.11-0.59) K/uL Eos # (Auto) (0-0.5) K/uL Baso # (Auto) (0-0.2) K/uL Immature Gran # (Auto) (0.00-0.02) K/uL Absolute Nucleated RBC (0-0) K/uL Nucleated RBC % (auto) % Hypochromasia Microcytosis ESR (0-21) mm/hr PT (9.0-12.0) Seconds INR (0.9-1.1) APTT (21.0-31.0) Seconds PTT Ratio Sodium (136-145) mmol/L Potassium (3.5-5.1) mmol/L Chloride (98-107) mmol/L Carbon Dioxide (21-32) mmol/L Anion Gap (3-11) BUN (7-18) mg/dl Creatinine (0.6-1.2) mg/dl Est Cr Clr Drug Dosing ml/min Est GFR ( Amer) Est GFR (Non-Af Amer) BUN/Creatinine Ratio (10-20) Glucose (70-99) mg/dl Lactate (0.4-2.0) mmol/L Uric Acid 3.8 (2.6-7.2) mg/dl Calcium (8.5-10.1) mg/dl Magnesium (1.8-2.4) mg/dl Ferritin (8-388) ng/ml Total Bilirubin (0.2-1) mg/dl AST (15-37) U/L ALT (12-78) U/L Alkaline Phosphatase (45-117) U/L Lactate Dehydrogenase (84-246) U/L Total Creatine Kinase (26-192) U/L CK-MB (CK-2) (0.5-3.6) ng/ml CK/CKMB % Calc Troponin I (0-0.045) ng/ml C-Reactive Protein (0-0.29) mg/dl Total Protein (6.4-8.2) gm/dl Albumin (3.4-5.0) gm/dl Globulin (2.5-4.0) gm/dl Albumin/Globulin Ratio (0.9-2) Procalcitonin (0-0.5) ng/ml Random Cortisol mcg/dl Urine Color Urine Appearance (Clear) Urine pH (4.5-7.5) Ur Specific [place] (1.000-1.030) Urine Protein (Negative) Urine Glucose (UA) (Negative) Urine Ketones (Negative) Urine Blood (Negative) Urine Nitrite (Negative) Urine Bilirubin (Negative) Urine Urobilinogen (Negative) Ur Leukocyte Esterase (Negative) Urine WBC (Auto) (0-5) /hpf Urine RBC (Auto) (0-4) /hpf U Hyaline Cast (Auto) (0-5) /lpf U Epithel Cells (Auto) (0-5) /lpf Urine Bacteria (Auto) (Negative) Cycl Citrul Peptide IgG 0.58 (0-4.99) U/ml Lyme Disease IgG Ab Positive A (Negative) Lyme Disease IgM Ab Positive A (Negative) COVID-19 Eval Order COVID-19 PCR (Negative) 12/28/19 12/28/19 12/28/19 Range/Units 11:28 11:28 11:50 WBC (4.8-10.8) K/uL RBC (4.2-5.4) M/uL Hgb (12.0-16.0) g/dL Hct (37-47) % MCV (80-100) fL MCH (25-34) pg MCHC (32-36) g/dL RDW Std Deviation (36.4-46.3) fL RDW Coeff of [place] (11.5-14.5) % Plt Count (130-400) K/uL MPV (7.4-10.4) fL Immature Gran % (Auto) % Neut % (Auto) % Lymph % (Auto) % [place] % (Auto) % Eos % (Auto) % Baso % (Auto) % Neut # (Auto) (1.4-6.5) K/uL Lymph # (Auto) (1.2-3.4) K/uL [place] # (Auto) (0.11-0.59) K/uL Eos # (Auto) (0-0.5) K/uL Baso # (Auto) (0-0.2) K/uL Immature Gran # (Auto) (0.00-0.02) K/uL Absolute Nucleated RBC (0-0) K/uL Nucleated RBC % (auto) % Hypochromasia Microcytosis ESR (0-21) mm/hr PT (9.0-12.0) Seconds INR (0.9-1.1) APTT (21.0-31.0) Seconds PTT Ratio Sodium (136-145) mmol/L Potassium (3.5-5.1) mmol/L Chloride (98-107) mmol/L Carbon Dioxide (21-32) mmol/L Anion Gap (3-11) BUN (7-18) mg/dl Creatinine (0.6-1.2) mg/dl Est Cr Clr Drug Dosing ml/min Est GFR ( Amer) Est GFR (Non-Af Amer) BUN/Creatinine Ratio (10-20) Glucose (70-99) mg/dl Lactate (0.4-2.0) mmol/L Uric Acid (2.6-7.2) mg/dl Calcium (8.5-10.1) mg/dl Magnesium (1.8-2.4) mg/dl Ferritin (8-388) ng/ml Total Bilirubin (0.2-1) mg/dl AST (15-37) U/L ALT (12-78) U/L Alkaline Phosphatase (45-117) U/L Lactate Dehydrogenase (84-246) U/L Total Creatine Kinase (26-192) U/L CK-MB (CK-2) (0.5-3.6) ng/ml CK/CKMB % Calc Troponin I (0-0.045) ng/ml C-Reactive Protein (0-0.29) mg/dl Total Protein (6.4-8.2) gm/dl Albumin (3.4-5.0) gm/dl Globulin (2.5-4.0) gm/dl Albumin/Globulin Ratio (0.9-2) Procalcitonin (0-0.5) ng/ml Random Cortisol mcg/dl Urine Color Yellow Urine Appearance Cloudy A (Clear) Urine pH 8.0 H (4.5-7.5) Ur Specific [place] 1.015 (1.000-1.030) Urine Protein Negative (Negative) Urine Glucose (UA) Negative (Negative) Urine Ketones Negative (Negative) Urine Blood 1+ H (Negative) Urine Nitrite Negative (Negative) Urine Bilirubin Negative (Negative) Urine Urobilinogen Negative (Negative) Ur Leukocyte Esterase Negative (Negative) Urine WBC (Auto) 0 (0-5) /hpf Urine RBC (Auto) 10-30 H (0-4) /hpf U Hyaline Cast (Auto) 1-5 (0-5) /lpf U Epithel Cells (Auto) 5-10 H (0-5) /lpf Urine Bacteria (Auto) Negative (Negative) Cycl Citrul Peptide IgG (0-4.99) U/ml Lyme Disease IgG Ab (Negative) Lyme Disease IgM Ab (Negative) COVID-19 Eval Order Covid19 Done at [facility] COVID-19 PCR NEGATIVE (Negative) Imaging Data Radiologist's Impression: [place], [place] [phone] XRay Report Patient: ANTONY TATE Admit Date: 12/28/19 MR#: [id number] Address1: [facility] [address] Acct ID:[id number] Address2: Date: 1945 [facility] Zip: [place] [address] Age: 74 Location: ED Sex: F Room/Bed: Att Phy: Diagnosis: PAIN Cherise Phy: Abner Simmons III, MD Service Date: 12/28/19 Fam Phy: Interpreting Phy: Bijan Valentine MD Admit Phy: Ordering Phy: Justo Low MD cc: ~ XR chest 1V portable CLINICAL HISTORY: SEPSIS COMPARISON STUDY: 10/25/2019 FINDINGS: The cardiac and mediastinal contours are normal. There is no evidence of focal pulmonary consolidation. There is no evidence of failure. No pleural effusions are visualized.[There is slight coarsening of the interstitial markings likely related to technical factors. IMPRESSION: No active disease in the chest. ACT 112: Negative or not required by law. Electronically signed by: Bijan Valentine M.D. 12/28/2019 11:41 AM Dictated: 12/28/19 1140 Transcribed: 12/28/19 1140 ECG Data Attestation: I personally reviewed and interpreted this ECG as follows: Indication: + other (fever) Rate (beats per minute): 109 Rhythm: + sinus tachycardia ECG Intervals/blocks: + Normal QT-c (449) ECG Baxter: + Normal ECG ST segments: no ST depression and no ST elevation Comparison ECG Date: from (10/25/2019) Change: no significant change MDM Narrative Patient was seen and evaluated as above in room A3. Review was performed of nursing notes and vital signs. I did review pertinent previous visits and patient history. After obtaining a thorough history and physical examination the above work up was performed. This is a 74-year-old female complaining of joint aches and pains. The patient is febrile here in the emergency department. She is on long-term prednisone. She was found to have an elevation in her white blood cell count of 20,000 and is febrile. She was swabbed for garcia virus. Her lactate was also elevated. The patient was started on normal saline bolus and started on broad-spectrum antibiotics including cefepime and daptomycin. She was given Solu-Cortef as well as Tylenol. Repeat examination revealed improvement the patient's sym ptoms. Because of the fever I did discuss the case with the hospitalist service who did agree to admit the patient. Patient is in agreement with the treatment plan. An order was placed for continuous cardiac monitoring. The monitor shows a rate of 100 with NS rhythm. The patient was evaluated during the global COVID-19 pandemic, and that diagnosis was suspected/considered upon their initial presentation. Their evaluation, treatment and testing was consistent with current guidelines for p atients who present with complaints or symptoms that may be related to COVID-19. Impression & Plan Fever Discharge Plan Visit Data Chief Complaint: Pain (Generalized) ED Provider: Justo Low Discharge Problem: Fever Patient Disposition: Admitted As Inpatient Discharge Instructions Interventions: ED Discharge Assessment Last Done: 12/28/19 13:48 Discharge Problem: Fever Qualifiers: Fever type: unspecified Qualified Code(s): R50.9 - Fever, unspecified
[2019-12-28 12:18] LABS: Creatine Kinase 71 U/L (26-192); Creatine Kinase MB < 1.0 ng/ml (0.5-3.6)
[2019-12-28 12:18] LABS: Appearance Urine Cloudy (Clear); Bacteria Urine Automated Negative (Negative); Bilirubin Urine Negative (Negative); Blood Urine 1+ (Negative); Color Urine Yellow; Glucose Urine UA Negative (Negative); Ketones Urine Negative (Negative); Leukocyte Esterase Urine Negative (Negative); Nitrite Urine Negative (Negative); Specific Gravity Urine 1.015 (1.000-1.030); Urobilinogen Urine Negative (Negative); WBC Urine Automated 0 /hpf (0-5)
[2019-12-28] MEDS ORDERED: AZTREONAM 2,000 MG in DEXTROSE 5% 100 ML IV STA (12:19)
[2019-12-28 12:20] LABS: Protein Urine Negative (Negative); Sulfosalicylic Acid Urine Negative (Negative)
[2019-12-28] MEDS ORDERED: POTASSIUM CHLORIDE 20 MEQ TABCR PO STA (13:21)
[2019-12-28] MEDS ORDERED: AZTREONAM CONSULT ACTIVE PRN (13:24)
[2019-12-28] MEDS ORDERED: SODIUM CHLORIDE 0.9% 1000ML 500 ML IV ONE (13:50)
[2019-12-28 14:13] LABS: Lyme Ab IgG w/WB Rflx Positive (Negative); Lyme Ab IgM w/WB Rflx Positive (Negative)
--- NOTE | 2019-12-28 14:22 | History & Physical Report ---
Date of Service December 28, 2019 Assessment & Plan (1) SIRS (systemic inflammatory response syndrome): (2) Inflammatory polyarthritis: Upon admission patient meets criteria for SIRS secondary to tachycardia, fever and leukocytosis Of significance patient's WBC on 12/16 was 18 K, likely elevated in setting of prednisone use Source: No infection identified at this time, but she does have swollen and red joints particularly of hands and feet Receive broad-spectrum IV antibiotics daptomycin and Azactam while in ED Initially received 500 mL of IVF, but additional 1.5 L has been ordered as lactic acid was elevated at 3.0, now resolved Ddx: viral inflammatory polyarthritis, lyme vs anaplasma, sepsis, septic arthritis, rheumatoid arthritis, effect of chronic hepatitis B among other etiologies Admit to telemetry Continue antibiotics with IV Azactam and oral doxycycline to cover for tickborne illness Continue gentle IVF 60 cc/h due to likely underlying dehydration which could be contributing to tachycardia/lactic acidosis which has since resolved Obtain Lyme titer and Anaplasma screen RF, anti-CCP, JUNE and uric acid -recently done 11/13/2019 which were normal APAP for pain control PT/OT (3) GCA (giant cell arteritis): Follows [facility] rheumatology Dr. Kay Currently is on prednisone taper 30 mg daily x1 week, taper down by 10 mg every week She is to contact Dr. Kay prior to completing 10 mg daily -for further taper (4) Latent tuberculosis: Follows [facility] ID recent quantiferon gold +, CXR negative for active TB on isoniazid and vitamin B6 (5) Chronic viral hepatitis B: Follows [facility] GI recent dx 11/2019 as result of work up prior to med start up for GCA no signs of cirrhosis on recent scan/fibroscan (6) Microscopic hematuria: urinalysis reflect microscopic hematuria May be in setting of Hoang catheter placement Recommend repeat urinalysis -if positive consider follow-up with urology (7) DVT prophylaxis: Lovenox Disposition: admit to tele Follow up: PCP Dr. Simmons upon discharge - she has follow up with Rheumatology sc heduled for 02/15/2020 Pt was seen and examined in collaboration with Dr. Covarrubias, please see addendum History of Present Illness Chief Complaint: Swollen, painful and red joints x3 days. Primary Care Provider: Abner Simmons MD This is a 74-year-old female who has significant past medical history of TIA, recently diagnosed chronic hepatitis B, GCA on prednisone and latent TB who presents to ED secondary to red, swollen and painful joints x3 days. Daughter is at bedside who provides most of history secondary to language barrier. They refused translation services. Per daughter patient developed swollen joints approximately 3 days ago and they became increasingly more swollen, red and painful. She had outpatient PCP appointment today and when daughter went to pick patient up she found her on the floor next to her bed, she had urinated and was unable to get her up. Daughter immediately called EMS. She does admit to elevated temperature yesterday at 99 but otherwise denies documented fever. She further denies any recent falls, syncope, chest pain, shortness breath, cough, nausea, vomiting, abdominal pain, diarrhea, melena hematochezia. Her appetite is otherwise normal, but has generally been decreased the past few days. Denies any known tick bites. Denies known COVID-19 exposure. Patient does live by herself and is mostly independent. She will go out for walks 2-3 times a day at baseline. But recently has been unable to do so. Of significance patient follows Dr. Kay for rheumatology. In November she recently underwent temporal artery biopsy which revealed early inflammation. She was diagnosed with likely GCA and placed on high-dose steroid therapy. She was initially on 60 mg daily but has since tapered down to 30 mg. She is currently on 30 mg x 1 week and will taper down to 20 mg next week. She has also been following GI for chronic viral hepatitis B. She also had a QuantiFERON gold test done which was positive. Chest x-ray was negative for active TB. Dr. Kay did consult with ID at [place] who recommended treating for latent TB 300 mg daily along with vitamin B6. In ED she remained hemodynamically stable. She was tachycardic and febrile upon arrival. Notable lab abnormalities include leukocytosis 20.39k, H&H 11.4 and 35.5, platelet 277 ESR greater than 90, K3.4, BUN 15, creatinine 0.71, glucose 123, lactic acid 3.0, AST 47, ALT 73 total bilirubin 1.3, CRP 13.3, pro-Romario 0.15 Urinalysis +1 blood and epithelial cells but negative for infection. Initial Lyme titer positive for IgG and IgM. She was apparently treated in ED with IV daptomycin and aztreonam. She also received 1.5 L of IVF. Allergies Allergy/AdvReac Type Severity Reaction Status Date / Time alendronate sodium Allergy Unknown PER PT Verified 12/28/19 11:02 RECORD amoxicillin Allergy Unknown PER PT Verified 12/28/19 11:02 RECORD clarithromycin Allergy Unknown PER PT Verified 12/28/19 11:02 RECORD nabumetone Allergy Unknown PER PT Verified 12/28/19 11:02 RECORD Home Medications Home Medications Medication Instructions Recorded Confirmed Type multivitamin 1 tab PO QAM 01/21/19 12/28/19 History acetaminophen [Tylenol] 325 mg PO QID PRN 10/25/19 12/28/19 History aspirin 81 mg PO DAILY 12/28/19 12/28/19 History isoniazid 300 mg PO DAILY 12/28/19 12/28/19 History prednisone 30 mg PO DAILY 12/28/19 12/28/19 History pyridoxine (vitamin B6) [Vitamin 25 mg PO DAILY 12/28/19 12/28/19 History B-6] doxycycline hyclate 100 mg PO BID 21 Days #42 cap 12/31/19 Rx Past Med/Surg History Medical History Chronic viral hepatitis B GCA (giant cell arteritis) History of appendicitis Latent tuberculosis Surgical History History of appendectomy History of temporal artery biopsy History of tubal ligation Hx of cholecystectomy Family History Brother Diabetes Father Coronary heart disease Mother Rheumatoid arthritis Social History Smoking Status: Never smoker Hx Alcohol Use: No Hx Substance Use: No Preferred Language: Cantonese Sami Communication Ability: Effective Communication Tools: Facial Expression, Physical Gestures and Lip Movement/Reading Special Certificate Dictator Required: Yes Beliefs That Will Affect Care: None marital status: / Current Living Situation: Alone Other Information That Helps Us Care for You: No Feels Safe at Home: Yes Safety Concerns: Feels Safe At This Time Assistive Devices: Walker Review of Systems Review of Systems: All systems reviewed & are unremarkable except as noted in HPI & below Physical Exam Physical Exam: Constitutional: Thin, petite, elderly, F, vitals as above, NAD, sitting up in bed, drowsy Head: Normocephalic, Atraumatic Eyes: PERRL, conjunctivae normal, anicteric sclerae ENMT: external ear and nose normal, oropharynx normal Neck: trachea midline, no thyromegaly normal visual inspection Respiratory: normal respiratory effort, lungs clear to auscultation, no wheeze, rales, rhonchi. Normal insp/exp effort, no accessory muscle use Cardiovascular: tachycardic rate, regular rhythm, no murmur, no edema Vessels: no JVD or carotid bruit Chest: normal inspection of chest Abdomen: normal bowel sounds, soft, nontender, no hepatosplenomegaly Musculoskeletal: pt with b/l PCP joint swelling, redness and warmth along with b/l ankle and pedal edema, warm and redness. +pain to palpation to b/l feet but active ROM in tact. no cyanosis or clubbing, extremities motor strength 5/5 Skin: no rashes, warm and dry normal turgor Neurologic: PERRL, EOMI, accommodation nl, no face palsy, no dysarthria CN's II-XI intact bilaterally and moves all extremities Psychiatric: A+Ox3, euthymic affect Lymphatic: no cervical or axillary lymphadenopathy : +hoang with toña urine Results & Data Results & Data ([facility]) Vital Signs (Past 12 Hours) Vital Signs Temp Pulse Pulse Resp BP BP Pulse Ox 12/28/19 13:48 102 H 20 124/62 97 12/28/19 13:00 103 H 17 135/71 96 12/28/19 12:13 102 H 18 145/84 H 97 12/28/19 10:44 38 C H 120 H 20 184/111 H 97 Laboratory Results Short CBC 12/28/19 12/28/19 12/28/19 Range/Units 11:07 11:07 11:07 WBC 20.39 H (4.8-10.8) K/uL Hgb 11.4 L (12.0-16.0) g/dL Hct 35.5 L (37-47) % Plt Count 277 (130-400) K/uL Lactate 3.0 H* (0.4-2.0) mmol/L Lyme Disease IgG Ab Positive A (Negative) Lyme Disease IgM Ab Positive A (Negative) 12/28/19 Range/Units 13:28 WBC (4.8-10.8) K/uL Hgb (12.0-16.0) g/dL Hct (37-47) % Plt Count (130-400) K/uL Lactate 1.2 (0.4-2.0) mmol/L Lyme Disease IgG Ab (Negative) Lyme Disease IgM Ab (Negative) BMP 12/28/19 11:07 Sodium 136 Potassium 3.4 L Chloride 101 Carbon Dioxide 25 BUN 15 Creatinine 0.71 Glucose 123 H Calcium 8.7 Cardiac Enzymes 12/28/19 12/28/19 Range/Units 11:07 11:07 Total Creatine Kinase 71 (26-192) U/L CK-MB (CK-2) < 1.0 (0.5-3.6) ng/ml Troponin I < 0.015 (0-0.045) ng/ml Liver Function 12/28/19 Range/Units 11:07 Total Bilirubin 1.3 H (0.2-1) mg/dl AST 47 H (15-37) U/L ALT 73 (12-78) U/L Alkaline Phosphatase 76 (45-117) U/L Albumin 2.7 L (3.4-5.0) gm/dl Urine 12/28/19 Range/Units 11:50 Urine Color Yellow Urine Appearance Cloudy A (Clear) Urine pH 8.0 H (4.5-7.5) Ur Specific [place] 1.015 (1.000-1.030) Urine Protein Negative (Negative) Urine Glucose (UA) Negative (Negative) Diagnostic Findings CXR: IMPRESSION: No active disease in the chest. Medications Administered Discontinued Medications Hydrocortisone Sodium Succinate (Hydrocortisone Sod Succinate 100 Mg/2 Ml Vial) 100 mg IV NOW STA Stop: 12/28/19 10:43 Last Admin: 12/28/19 11:51 Dose: 100 mg Documented by: [id number] Cefepime HCl (Maxipime) 2,000 mg in 20 mls @ 5 mls/min IV NOW STA; Protocol Stop: 12/28/19 10:47 Last Admin: 12/28/19 12:09 Dose: Not Given Documented by: [id number] Acetaminophen (Ofirmev) 1,000 mg in 100 mls @ 400 mls/hr IV NOW STA Stop: 12/28/19 10:58 Last Infusion: 12/28/19 12:01 Dose: 0 mls/hr Documented by: [id number] Admin: 12/28/19 11:41 Dose: 400 mls/hr Documented by: [id number] Daptomycin 350 mg/ Syringe 7 mls @ 3.5 mls/min IV NOW ONE; Protocol Stop: 12/28/19 10:55 Last Admin: 12/28/19 11:50 Dose: 3.5 mls/min Documented by: [id number] Sodium Chloride (Nss) 500 mls @ 999 mls/hr IV .Q31M ONE Stop: 12/28/19 12:13 Last Infusion: 12/28/19 12:23 Dose: 0 mls/hr Documented by: [id number] Admin: 12/28/19 11:51 Dose: 999 mls/hr Documented by: [id number] Sodium Chloride (Nss 1000ml) 1,000 mls @ 999 mls/hr IV .Q1H1M ONE Stop: 12/28/19 13:05 Last Infusion: 12/28/19 14:24 Dose: 0 mls/hr Documented by: [id number] Admin: 12/28/19 13:15 Dose: 999 mls/hr Documented by: [id number] Aztreonam 2,000 mg/ Dextrose 110 mls @ 110 mls/hr IV NOW STA Stop: 12/28/19 13:18 Last Infusion: 12/28/19 14:24 Dose: 0 mls/hr Documented by: [id number] Admin: 12/28/19 13:15 Dose: 110 mls/hr Documented by: [id number] Ondansetron HCl (Ondansetron Inj 2 Mg/Ml 2 Ml Vial) 4 mg IV NOW STA Stop: 12/28/19 10:45 Last Admin: 12/28/19 11:51 Dose: 4 mg Documented by: [id number] ECG Rate (beats per minute): 109 Rhythm: sinus tachycardia Code Status & VTE Plan Code Status Full Code VTE Prophylaxis Plan VTE Prophylaxis will be ordered: Yes Supervising Physician Co-Signing Physician Notes Pt was seen and examined. Agreed with Alma exam, assessment and plan. 74-year-old female who has significant past medical history of TIA, recently diagnosed with chronic hepatitis B, latent TB who presents to ED secondary to red, swollen and painful joints x3 days. History obtained from daughter at bedside due to language barrier. Pt and daughter refused the language services. Daughter said that pt has been having alot of pain in her joint area to the point where she was not able to move. Daughter said that when she went to her place to get her for her doctor's appointment, she was found on the floor. She said that she fell warm yesterday. Denies any fall, syncope, chest pain, palpitation and SOB. CXR on admission showed no active disease in the chest. In the ER she was febrile with leukocytosis 20.39k, ESR greater than 90, lactic acid 3.0, AST 47, ALT 73 total bilirubin 1.3, CRP 13.3, pro-Romario 0.15 Initial Lyme titer positive for IgG and IgM. Received IV abx with dapto, Azactam and IVF in the ER. Will continue IV abx with Azactam and starting on IV doxycycline since lyme titer for IgM and IgG positive and as per daughter pt was never treated for lyme disease in the past. Blood cx collected in the ER and will follow. Will contact her Rheumatology Dr. Womack. Continue pain control. Continue monitor closely. MD Satish
[2019-12-28] MEDS ORDERED: SODIUM CHLORIDE 0.9% 1000ML 1,000 ML IV SCH (14:30)
[2019-12-28] MEDS ORDERED: ALUMINUM/MAGNESIUM SUSP 30 ML UDC PO PRN (14:30)
[2019-12-28] MEDS ORDERED: POLYETHYLENE (MIRALAX) 17 GM PACK PO PRN (14:30)
[2019-12-28] MEDS ORDERED: ONDANSETRON INJ 2 MG/ML 2 ML VIAL IV PRN (14:30)
[2019-12-28] MEDS ORDERED: MAGNESIUM HYDROXIDE SUSP 30 ML UDC PO PRN (14:30)
[2019-12-28] MEDS ORDERED: ACETAMINOPHEN 325 MG TAB PO PRN (14:30)
[2019-12-28] MEDS: ENOXAPARIN INJ 40 MG/0.4 ML SYR SQ SCH (20:00)
[2019-12-28] MEDS: DOXYCYCLINE HYCLATE 100 MG CAP PO SCH (20:00)
[2019-12-28] MEDS: AZTREONAM 2,000 MG in DEXTROSE 5% 100 ML IV SCH (22:30)
[2019-12-29 05:55] LABS: Eosinophils # (auto) 0.08 K/uL (0-0.5); Eosinophils % (auto) 0.5 %; Hematocrit (blood only) 32.6 % (37-47); Hemoglobin 10.1 g/dL (12.0-16.0); Immature Granulocytes # (auto) 0.09 K/uL (0.00-0.02); Immature Granulocytes % (auto) 0.5 %; Lymphocytes # (auto) 2.88 K/uL (1.2-3.4); Lymphocytes % (auto) 17.4 %; Mean Corpuscular Hemoglobin 19.8 pg (25-34); Mean Platelet Volume 8.8 fL (7.4-10.4); Monocytes % (auto) 7.2 %; Neutrophils # (auto) 12.32 K/uL (1.4-6.5); Neutrophils % (auto) 74.4 %; Nucleated RBC # (auto) 0.02 K/uL (0-0); Nucleated RBC % (auto) 0.1 %; Platelet Count 274 K/uL (130-400); RDW Coefficient of Variation 17.5 % (11.5-14.5); RDW Standard Deviation 40.5 fL (36.4-46.3); Red Blood Count 5.09 M/uL (4.2-5.4); White Blood Count 16.57 K/uL (4.8-10.8)
[2019-12-29] MEDS: AZTREONAM 2,000 MG in DEXTROSE 5% 100 ML IV SCH ×3 (06:20→22:12)
[2019-12-29 06:25] LABS: Albumin Level 2.2 gm/dl (3.4-5.0); Calcium 8.5 mg/dl (8.5-10.1); Creatinine Clr Calc Pharmacy 65.6 ml/min; Est GFR (African American) 101.6; Est GFR (Non-African American) 87.6; Potassium 3.4 mmol/L (3.5-5.1)
[2019-12-29 06:44] LABS: Albumin Globulin Ratio 0.5 (0.9-2); Bilirubin,Total 0.7 mg/dl (0.2-1); Globulin 4.3 gm/dl (2.5-4.0); Total Protein 6.5 gm/dl (6.4-8.2)
[2019-12-29 06:45] LABS: Hypochromasia Present; Microcytosis Present; Target Cells 1+
[2019-12-29] MEDS ORDERED: PNEUMOCOCCAL Polysaccharide Vaccine 25mcg/0.5mL vial/Syr IM ONE (08:00)
[2019-12-29] MEDS: DOXYCYCLINE HYCLATE 100 MG CAP PO SCH ×2 (08:01→20:41)
[2019-12-29] MEDS: ISONIAZID 100 MG TAB PO SCH (08:01)
[2019-12-29] MEDS: MULTIVITAMIN TAB PO SCH (08:01)
[2019-12-29] MEDS: ASPIRIN 81 MG ECTAB PO SCH (08:01)
[2019-12-29] MEDS: predniSONE 10 MG TABLET PO SCH (08:01)
[2019-12-29] MEDS: PYRIDOXINE HCL 50 MG TAB PO SCH (08:02)
[2019-12-29] MEDS ORDERED: POTASSIUM CHLORIDE 20 MEQ TABCR PO STA (08:10)
[2019-12-29] MEDS ORDERED: ISONIAZID 300 MG TAB PO SCH (09:00)
[2019-12-29 10:20] LABS: Estimated Average Glucose 131 mg/dl; Hemoglobin A1C 6.2 % (4.5-5.6)
[2019-12-29] MEDS ORDERED: KETOROLAC TROMETHAMINE 15 MG/ML VIAL IV ONE (11:37)
[2019-12-29] MEDS: METOPROLOL TARTRATE 25 MG TAB PO SCH ×2 (11:44→20:41)
[2019-12-29] MEDS ORDERED: KETOROLAC TROMETHAMINE 15 MG/ML VIAL IV PRN (16:18)
--- NOTE | 2019-12-29 16:22 | Hospitalist Progress Note ---
Date of Service December 29, 2019 Assessment & Plan (1) SIRS (systemic inflammatory response syndrome): (2) Inflammatory polyarthritis: Present on admission with fever, weakness, swelling and pain in hands and feet Met criteria for SIRS secondary to tachycardia, fever and leukocytosis WBC on admission 20K and lactic acid elevated Receive broad-spectrum IV antibiotics daptomycin and Azactam while in ED, then doxycycline was added WBC improved to 16K and lactic acid normalized RF, anti-CCP, JUNE and uric acid -recently done 11/13/2019 which were normal Received IVF in the ER Lyme titer positive Blood cx no growth Continue doxycycline and azactam for now If blood cx remains negative, will d/c the azactam Will add toradol prn for pain (3) GCA (giant cell arteritis): Follows [facility] rheumatology Dr. Kay Was taking prednisone taper 30 mg daily x1 week, taper down by 10 mg every week Biopsy was negative for giant cell arteritis case discussed with Dr. Womack and agreed to try IV steroid 20mg q8h for now (4) Latent tuberculosis: Follows [facility] ID recent quantiferon gold +, CXR negative for active TB on isoniazid and vitamin B6 (5) Chronic viral hepatitis B: Follows [facility] GI recent dx 11/2019 as result of work up prior to med start up for GCA no signs of cirrhosis on recent scan/fibroscan (6) Microscopic hematuria: UA positive for +1 blood Will need outpatient work up with urology Hypokalemia K 3.4 today K replaced (7) DVT prophylaxis: Lovenox Admission and Anticipated Discharge Date Admission Date: December 28, 2019 Subjective Pt was seen and examined Lying in bed with no acute distress with daughter at bedside Daughter said that she would translate rather to use the eligibility and occupancy interviewer Pt said that her pain is slightly improves compare to yesterday Her hands continue swelling denies any chest pain, palpitation, dizziness and SOB Physical Exam Physical Exam: General- No acute distress Head- atraumatic Eyes- PERRL, EOMI, ENT- oropharynx clear Neck- supple, no JVD Lungs- clear to auscultation Heart- +tachycardia Abdomen- normal bowel sounds, soft, nontender Extremities- +swelling and tenderness in B/L LE and hands Neuro- alert, oriented x 3; PERRL, EOMI; no facial palsy; no dysarthria Skin- warm & dry Results & Data Results & Data ([facility]) Vital Signs (Past 12 Hours) Vital Signs Temp Pulse Resp BP Pulse Ox 12/29/19 15:40 36.8 C 98 H 18 126/78 97 12/29/19 11:39 38.0 C H 114 H 18 146/115 H 97 12/29/19 07:44 37.9 C H 124 H 19 164/103 H 97
[2019-12-29] MEDS: methylPREDNISolone 20 MG in SYRINGE 0 ML IV SCH (17:05)
[2019-12-29] MEDS: ENOXAPARIN INJ 40 MG/0.4 ML SYR SQ SCH (20:48)
[2019-12-30] MEDS: methylPREDNISolone 20 MG in SYRINGE 0 ML IV SCH ×3 (00:32→20:03)
[2019-12-30] MEDS: AZTREONAM 2,000 MG in DEXTROSE 5% 100 ML IV SCH (06:21)
[2019-12-30 07:32] LABS: Hematocrit (blood only) 33.2 % (37-47); Hemoglobin 9.8 g/dL (12.0-16.0); Mean Corpuscular Hgb Conc 29.5 g/dL (32-36); Mean Corpuscular Volume 64.2 fL (80-100); Mean Platelet Volume 8.9 fL (7.4-10.4); Platelet Count 268 K/uL (130-400); RDW Coefficient of Variation 17.5 % (11.5-14.5); RDW Standard Deviation 40.8 fL (36.4-46.3); Red Blood Count 5.17 M/uL (4.2-5.4); White Blood Count 19.67 K/uL (4.8-10.8)
--- NOTE | 2019-12-30 07:44 | Electrocardiogram Report ---
Test Reason : Blood Pressure : / mmHG Vent. Rate : 109 BPM Atrial Rate : 109 BPM P-R Int : 116 ms QRS Dur : 082 ms QT Int : 334 ms P-R-T Axes : 026 028 030 degrees QTc Int : 449 ms Sinus tachycardia Otherwise normal ECG When compared with ECG of 25-OCT-2019 13:30, Premature atrial complexes are no longer Present Confirmed by José Miguel Norwood ([id number]) on 12/30/2019 7:44:22 AM Referred By: ED Confirmed By:José Miguel Norwood
[2019-12-30 07:57] LABS: BUN Creatinine Ratio 32.7 (10-20); Calcium 8.5 mg/dl (8.5-10.1); Creatinine Clr Calc Pharmacy 69.8 ml/min; Est GFR (African American) 103.7; Est GFR (Non-African American) 89.5
[2019-12-30] MEDS: ISONIAZID 100 MG TAB PO SCH (08:42)
[2019-12-30] MEDS: METOPROLOL TARTRATE 25 MG TAB PO SCH ×2 (08:43→20:02)
[2019-12-30] MEDS: DOXYCYCLINE HYCLATE 100 MG CAP PO SCH (08:43)
[2019-12-30] MEDS: PYRIDOXINE HCL 50 MG TAB PO SCH (08:44)
[2019-12-30] MEDS: predniSONE 10 MG TABLET PO SCH (08:44)
[2019-12-30] MEDS: ASPIRIN 81 MG ECTAB PO SCH (08:45)
[2019-12-30] MEDS: MULTIVITAMIN TAB PO SCH (08:45)
--- NOTE | 2019-12-30 19:15 | Hospitalist Progress Note ---
Date of Service December 30, 2019 Assessment & Plan (1) Lyme disease: (2) SIRS (systemic inflammatory response syndrome): (3) Inflammatory polyarthritis: Present on admission with fever, weakness, swelling and pain in hands and feet Met criteria for SIRS secondary to tachycardia, fever and leukocytosis WBC on admission 20K and lactic acid elevated Receive broad-spectrum IV antibiotics daptomycin and Azactam while in ED, then doxycycline was added WBC improved to 16K and lactic acid normalized RF, anti-CCP, JUNE and uric acid -recently done 11/13/2019 which were normal Received IVF in the ER Lyme titer positive Blood cx no growth Continue doxycycline to complete the course Azactam discontinued since blood cx remains negative Continue toradol prn for pain Pain and swelling improves significantly (4) GCA (giant cell arteritis): Follows [facility] rheumatology Dr. Kay Was taking prednisone taper 30 mg daily x1 week, taper down by 10 mg every week Biopsy was negative for giant cell arteritis case discussed with Dr. Womack and agreed to try IV steroid 20mg q8h for now (5) Latent tuberculosis: Follows [facility] ID recent quantiferon gold +, CXR negative for active TB on isoniazid and vitamin B6 (6) Chronic viral hepatitis B: Follows [facility] GI recent dx 11/2019 as result of work up prior to med start up for GCA no signs of cirrhosis on recent scan/fibroscan (7) Microscopic hematuria: UA positive for +1 blood Will need outpatient work up with urology Hypokalemia K 4 today Stable (8) DVT prophylaxis: Lovenox Admission and Anticipated Discharge Date Admission Date: December 28, 2019 Subjective Pt was seen and examined Sitting in chair with no distress with daughter present Daughter said that pt is feeling much better today Her pain and her swelling improves significantly She has been walking in the hallway Denies any chest pain, palpitation, dizziness and sob Physical Exam Physical Exam: General- No acute distress Head- atraumatic Eyes- PERRL, EOMI, ENT- oropharynx clear Neck- supple, no JVD Lungs- clear to auscultation Heart- +tachycardia Abdomen- normal bowel sounds, soft, nontender Extremities- +swelling and tenderness in B/L LE and hands Neuro- alert, oriented x 3; PERRL, EOMI; no facial palsy; no dysarthria Skin- warm & dry Results & Data Results & Data ([place]) Vital Signs (Past 12 Hours) Vital Signs Temp Pulse Resp BP Pulse Ox 12/30/19 18:59 36.8 C 97 H 19 134/74 96 12/30/19 15:34 36.8 C 98 H 20 145/81 H 96 12/30/19 11:36 36.6 C 87 19 131/77 98 12/30/19 07:26 36.5 C 91 H 17 129/77 98
[2019-12-30] MEDS: ENOXAPARIN INJ 40 MG/0.4 ML SYR SQ SCH (20:03)
[2019-12-31] MEDS: predniSONE 10 MG TABLET PO SCH (07:43)
[2019-12-31] MEDS: methylPREDNISolone 20 MG in SYRINGE 0 ML IV SCH (07:43)
[2019-12-31] MEDS: PYRIDOXINE HCL 50 MG TAB PO SCH (07:44)
[2019-12-31] MEDS: METOPROLOL TARTRATE 25 MG TAB PO SCH (07:44)
[2019-12-31] MEDS: MULTIVITAMIN TAB PO SCH (07:45)
[2019-12-31] MEDS: ISONIAZID 100 MG TAB PO SCH (07:45)
[2019-12-31] MEDS: ASPIRIN 81 MG ECTAB PO SCH (07:46)
--- NOTE | 2019-12-31 10:25 | Hospitalist Progress Note ---
Date of Service December 31, 2019 Assessment & Plan (1) Lyme disease: (2) SIRS (systemic inflammatory response syndrome): (3) Inflammatory polyarthritis: Present on admission with fever, weakness, swelling and pain in hands and feet Met criteria for SIRS secondary to tachycardia, fever and leukocytosis WBC on admission 20K and lactic acid elevated Receive broad-spectrum IV antibiotics daptomycin and Azactam while in ED, then doxycycline was added WBC improved to 16K and lactic acid normalized RF, anti-CCP, JUNE and uric acid -recently done 11/13/2019 which were normal Received IVF in the ER Lyme titer positive Blood cx no growth Continue doxycycline to complete the course Azactam discontinued since blood cx remains negative Received toradol prn for pain Pain and swelling improves significantly Will complete the course of Doxycycline (4) GCA (giant cell arteritis): Follows [facility] rheumatology Dr. Kay Was taking prednisone taper 30 mg daily x1 week, taper down by 10 mg every week Biopsy was negative for giant cell arteritis case discussed with Dr. Womack and agreed to try IV steroid 20mg q8h for now, Solumedrol decreased to BID Will transition back to her PO prednisone taper course (5) Latent tuberculosis: Follows [facility] ID recent quantiferon gold +, CXR negative for active TB on isoniazid and vitamin B6 (6) Chronic viral hepatitis B: [facility] recent dx 11/2019 as result of work up prior to med start up for GCA no signs of cirrhosis on recent scan/fibroscan (7) Microscopic hematuria: Possible related to hoang insertion UA positive for +1 blood Will need repeat UA outpatient Will need outpatient work up with urology Elevated blood pressure Possible related to the acute illness in the hospital setting Low dose ob metoprolol was adding due to elevated HR as well Continue to monitor BP outpatient and if elevates PCP will start on PO BP med Resolved Hyperglycemia Mostly related to steroid HgA1c 6.2 Discussed with daughter about lifestyle modification and limited concentrated sweet intake Check Hba1c in 6 months Hypokalemia Stable (8) DVT prophylaxis: Lovenox Admission and Anticipated Discharge Date Admission Date: December 28, 2019 Subjective Pt was seen and examined Sitting in chair with no distress with daughter at bedside Pt said that she feels well Daughter said that she is bag to her baseline Her swelling and pain in her joints improve significantly She has been walking in the hallway Denies any chest pain, palpitation, dizziness and SOB Physical Exam Physical Exam: General- No acute distress Head- atraumatic Eyes- PERRL, EOMI, ENT- oropharynx clear Neck- supple, no JVD Lungs- clear to auscultation Heart- +tachycardia Abdomen- normal bowel sounds, soft, nontender Extremities- swelling and tenderness in B/L feet and hands resolved Neuro- alert, oriented x 3; PERRL, EOMI; no facial palsy; no dysarthria Skin- warm & dry Results & Data Results & Data ([facility]) Vital Signs (Past 12 Hours) Vital Signs Temp Pulse Resp BP Pulse Ox 12/31/19 07:03 36.7 C 70 19 138/81 97 12/31/19 04:06 36.6 C 77 18 150/87 H 97 12/30/19 23:10 36.7 C 80 18 130/73 95
[2019-12-31] MEDS ORDERED: DOXYCYCLINE HYCLATE 100 MG CAP PO SCH (10:30)
[2019-12-31 14:10] LABS: 18KDIGG Band REACTIVE; 23KDIGG Band REACTIVE; 23KDIGM Band REACTIVE; 28KDIGG Band REACTIVE; 30KDIGG Band REACTIVE; 39KDIGG Band REACTIVE; 39KDIGM Band REACTIVE; 41KDIGG Band REACTIVE; 41KDIGM Band REACTIVE; 45KDIGG Band REACTIVE; 58KDIGG Band REACTIVE; 66KDIGG Band REACTIVE; 93KDIGG Band REACTIVE; Lyme Antibodies, WB IgG POSITIVE (NEGATIVE); Lyme Antibodies, WB IgM POSITIVE (NEGATIVE)
[2020-01-02 01:15] LABS: Anti-Neutrophil Antibody NONE DETECTED (NONE DETECTED); Rheumatoid Factor <14 IU/mL (<14)
--- NOTE | 2020-01-08 10:52 | Discharge Summary ---
Date of Service December 31, 2019 Admission HPI Per Admitting Provider This is a 74-year-old female who has significant past medical history of TIA, recently diagnosed chronic hepatitis B, GCA on prednisone and latent TB who presents to ED secondary to red, swollen and painful joints x3 days. Daughter is at bedside who provides most of history secondary to language barrier. They refused translation services. Per daughter patient developed swollen joints approximately 3 days ago and they became increasingly more swollen, red and painful. She had outpatient PCP appointment today and when daughter went to pick patient up she found her on the floor next to her bed, she had urinated and was unable to get her up. Daughter immediately called EMS. She does admit to elevated temperature yesterday at 99 but otherwise denies documented fever. She further denies any recent falls, syncope, chest pain, shortness breath, cough, nausea, vomiting, abdominal pain, diarrhea, melena hematochezia. Her appetite is otherwise normal, but has generally been decreased the past few days. Denies any known tick bites. Denies known COVID-19 exposure. Patient does live by herself and is mostly independent. She will go out for walks 2-3 times a day at baseline. But recently has been unable to do so. Of significance patient follows Dr. Kay for rheumatology. In November she recently underwent temporal artery biopsy which revealed early inflammation. She was diagnosed with likely GCA and placed on high-dose steroid therapy. She was initially on 60 mg daily but has since tapered down to 30 mg. She is currently on 30 mg x 1 week and will taper down to 20 mg next week. She has also been following GI for chronic viral hepatitis B. She also had a QuantiFERON gold test done which was positive. Chest x-ray was negative for active TB. Dr. Kay did consult with ID at [facility] who recommended treating for latent TB 300 mg daily along with vitamin B6. In ED she remained hemodynamically stable. She was tachycardic and febrile upon arrival. Notable lab abnormalities include leukocytosis 20.39k, H&H 11.4 and 35.5, platelet 277 ESR greater than 90, K3.4, BUN 15, creatinine 0.71, glucose 123, lactic acid 3.0, AST 47, ALT 73 total bilirubin 1.3, CRP 13.3, pro-Romario 0.15 Urinalysis +1 blood and epithelial cells but negative for infection. Initial Lyme titer positive for IgG and IgM. She was apparently treated in ED with IV daptomycin and aztreonam. She also r eceived 1.5 L of IVF. Admission Exam Per Admitting Provider Constitutional: Thin, petite, elderly, F, vitals as above, NAD, sitting up in bed, drowsy Head: Normocephalic, Atraumatic Eyes: PERRL, conjunctivae normal, anicteric sclerae ENMT: external ear and nose normal, oropharynx normal Neck: trachea midline, no thyromegaly normal visual inspection Respiratory: normal respiratory effort, lungs clear to auscultation, no wheeze, rales, rhonchi. Normal insp/exp effort, no accessory muscle use Cardiovascular: tachycardic rate, regular rhythm, no murmur, no edema Vessels: no JVD or carotid bruit Chest: normal inspection of chest Abdomen: normal bowel sounds, soft, nontender, no hepatosplenomegaly Musculoskeletal: pt with b/l PCP joint swelling, redness and warmth along with b/l ankle and pedal edema, warm and redness. +pain to palpation to b/l feet but active ROM in tact. no cyanosis or clubbing, extremities motor strength 5/5 Skin: no rashes, warm and dry normal turgor Neurologic: PERRL, EOMI, accommodation nl, no face palsy, no dysarthria CN's II-XI intact bilaterally and moves all extremities Psychiatric: A+Ox3, euthymic affect Lymphatic: no cervical or axillary lymphadenopathy : +hoang with toña urine Principal Diagnosis Lyme disease: Inflammatory polyarthritis: Latent tuberculosis: Chronic viral hepatitis B: Microscopic hematuria: Hyperglycemia (Elevated blood sugar) Hypokalemia (Low potassium) Discharge Exam General- No acute distress Head- atraumatic Eyes- PERRL, EOMI, ENT- oropharynx clear Neck- supple, no JVD Lungs- clear to auscultation Heart- +tachycardia Abdomen- normal bowel sounds, soft, nontender Extremities- swelling and tenderness in B/L feet and hands resolved Neuro- alert, oriented x 3; PERRL, EOMI; no facial palsy; no dysarthria Skin- warm & dry Discharge Data Allergies Allergy/AdvReac Type Severity Reaction Status Date / Time alendronate sodium Allergy Unknown PER PT Verified 12/28/19 11:02 RECORD amoxicillin Allergy Unknown PER PT Verified 12/28/19 11:02 RECORD clarithromycin Allergy Unknown PER PT Verified 12/28/19 11:02 RECORD nabumetone Allergy Unknown PER PT Verified 12/28/19 11:02 RECORD Consultations 12/28/19 11:54 ED Decision to Admit Stat 12/28/19 14:30 Consult Case Management - Discharge Planning Routine Ordered Studies XR chest 1V portable CLINICAL HISTORY: SEPSIS COMPARISON STUDY: 10/25/2019 FINDINGS: The cardiac and mediastinal contours are normal. There is no evidence of focal pulmonary consolidation. There is no evidence of failure. No pleural effusions are visualized.[There is slight coarsening of the interstitial markings likely related to technical factors. IMPRESSION: No active disease in the chest. ACT 112: Negative or not required by law. Electronically signed by: Bijan Valentine M.D. 12/28/2019 11:41 AM Dictated: 12/28/19 1140 Transcribed: 12/28/19 1140 Hospital Course (1) Lyme disease: (2) SIRS (systemic inflammatory response syndrome): (3) Inflammatory polyarthritis: Present on admission with fever, weakness, swelling and pain in hands and feet Met criteria for SIRS secondary to tachycardia, fever and leukocytosis WBC on admission 20K and lactic acid elevated Receive broad-spectrum IV antibiotics daptomycin and Azactam while in ED, then doxycycline was added WBC improved to 16K and lactic acid normalized RF, anti-CCP, JUNE and uric acid -recently done 11/13/2019 which were normal Received IVF in the ER Lyme titer positive Blood cx no growth Continue doxycycline to complete the course Azactam discontinued since blood cx remains negative Received toradol prn for pain Pain and swelling improves significantly Will complete the course of Doxycycline (4) GCA (giant cell arteritis): Follows [facility] rheumatology Dr. Kay Was taking prednisone taper 30 mg daily x1 week, taper down by 10 mg every week Biopsy was negative for giant cell arteritis case discussed with Dr. Womack and agreed to try IV steroid 20mg q8h for now, Solumedrol decreased to BID Will transition back to her PO prednisone taper course (5) Latent tuberculosis: Follows [facility] ID recent quantiferon gold +, CXR negative for active TB on isoniazid and vitamin B6 (6) Chronic viral hepatitis B: Follows [facility] GI recent dx 11/2019 as result of work up prior to med start up for GCA no signs of cirrhosis on recent scan/fibroscan (7) Microscopic hematuria: Possible related to haong insertion UA positive for +1 blood Will need repeat UA outpatient Will need outpatient work up with urology Elevated blood pressure Possible related to the acute illness in the hospital setting Low dose ob metoprolol was adding due to elevated HR as well Continue to monitor BP outpatient and if elevates PCP will start on PO BP med Resolved Hyperglycemia Mostly related to steroid HgA1c 6.2 Discussed with daughter about lifestyle modification and limited concentrated sweet intake Check Hba1c in 6 months Hypokalemia Stable (8) DVT prophylaxis: Lovenox Total Time Total Time Spent Total Time Spent (In Minutes): 35 minutes Total Time Includes: Examination of the Patient, Discharge Planning, Medication Reconciliation, Communication With Other Providers and Other Discharge Plan Discharge Items Patient Disposition: Home - Home Health Services Reason For Visit: FEVER,LACTIC ACIDOSIS Discharge Diagnosis: Lyme disease: Inflammatory polyarthritis: Latent tuberculosis: Chronic viral hepatitis B: Microscopic hematuria: Hyperglycemia (Elevated blood sugar) Hypokalemia (Low potassium) Activity: Resume your previous activity Non-emergency contact: Primary Care Provider Call non-emergency contact if: you have any medication questions and your temperature is above 101 Follow-up/Referrals: Abner Simmons MD [Primary Care Provider] - 01/04/20 2:00 pm (Date & Time 01/04/2020 2:00 PM Provider Abner Simmons III, MD Department [facility] ) Diet: Regular Addtl Attending Provider Instructions: Follow up with your primary care provider Dr. Simmons on 01/04/20 @ 2:00 PM Follow up with your Rheumatology Dr. Womack Continue physical and occupational therapy Complete the course of the antibiotic with doxycycline Continue follow prednisone taper as per rheumatology Check urinalysis in 1 -2 weeks to monitor for the trace of blood and if positive your provider will refer you with urology for evaluation You are borderline diabetes. please follow a healthy diet and limiting concentrated sweet intake Your provider will check your HBA1C in 6 months Please increase potassium supplement in your diet Continue monitor your blood pressure Fall precaution Pending Studies at Discharge: Yes (Western blot lyme ) Stand-Alone Forms: My [employer], Smoking Cessation Medications and DC Order Prescriptions: New doxycycline hyclate 100 mg Capsule 100 mg PO BID 21 Days Qty: 42 RF: 0 Continued multivitamin Tablet 1 tab PO QAM RF: 0 acetaminophen [Tylenol] 325 mg Tablet 325 mg PO QID PRN (Reason: Pain) RF: 0 pyridoxine (vitamin B6) [Vitamin B-6] 25 mg tablet 25 mg PO DAILY RF: 0 prednisone 20 mg tablet 30 mg PO DAILY RF: 0 aspirin 81 mg tablet,delayed release (DR/EC) 81 mg PO DAILY RF: 0 isoniazid 300 mg tablet 300 mg PO DAILY RF: 0 Discharge Orders: Discharge Order (Routine); Ordered 12/31/19 Ordered By: Rosita Agustin/Other Patient Handouts: A1C Admission Data Admit Date/Time: 12/28/19 13:21 Attending Provider: Rosita Covarrubias Admit Provider: Rosita Covarrubias Primary Care Provider: Abner Simmons Other Providers: Rosita Covarrubias ; [facility] Other Interventions: Discharge Summary Assessment (RN) Last Done: 12/31/19 11:43
== END 2019-12-31 15:57 | disposition home health service (06) | DRG 868 ==
LOC: ED 10:32 → 2E 13:21